=== PATIENT | male | born 1960 | race African-American/Black ===

== ENCOUNTER 2019-05-21 18:31 | Emergency (ER) | payer OTHER ==
[2019-05-21] MEDS ORDERED: HYDRALAZINE HCL 20 MG/ML VIAL ONE (19:30)
[2019-05-21 19:45] LABS: Absolute Lymphocytes (CBC) 0.9 K/uL (0.7-4.9); Basophils % 0.6 % (0-1.3); Hematocrit 40.2 % (39.6-49.0); Lymphocytes % 8.3 % (15.3-44.8); MPV 9.3 fL (7.6-11.3); RBC Red Blood Cell Count 5.32 M/uL (4.33-5.43)
[2019-05-21 20:20] LABS: Albumin 2.8 g/dL (3.4-5.0); Bilirubin Direct 0.1 mg/dL (0-0.2); Bilirubin Total 0.3 mg/dL (0.2-1.0); Potassium 3.6 mmol/L (3.5-5.1); Protein, Total 7.1 g/dL (6.4-8.2)
[2019-05-21 21:02] LABS: Anisocytosis SLIGHT; Blood Morphology Comment NOTED (NOT SEEN); Platelet Estimate ADEQ; Poikilocytosis SLIGHT
[2019-05-21] MEDS ORDERED: cloNIDine HCl 0.1 MG TAB ONE (21:05)
--- NOTE | 2019-05-21 21:54 | ER ---
Nurse's Notes [facility] Name: Earl Garcia Age: 59 yrs Sex: Male : 1960 Arrival Date: 05/21/2019 Time: 18:43 Bed 7 Private MD: Diagnosis: Hypoglycemia, unspecified Presentation: 05/21 18:43 Presenting complaint: EMS states: pt bgl was 26 at home. pt found on floor by family ch near couch. denies any pain. pt given 150mL of D10 W in route. pt is now aaox4. Transition of care: patient was not received from another setting of care. Onset of symptoms was May 21, 2019. Risk Assessment: Do you want to hurt yourself or someone else? Patient reports no desire to harm self or others. Initial Sepsis Screen: Does the patient meet any 2 criteria? No. Patient's initial sepsis screen is negative. Does the patient have a suspected source of infection? No. Patient's initial sepsis screen is negative. Care prior to arrival: Medication(s) given: D10 W IV initiated. 20 GA, in the left antecubital area, Glucose check: 26. 18:43 Method Of Arrival: EMS: [facility] 18:43 Acuity: LEN 3 ch Triage Assessment: 18:47 General: Appears in no apparent distress. comfortable, Behavior is calm, cooperative, ch appropriate for age. Pain: Denies pain. Neuro: Level of Consciousness is awake, alert, obeys commands, Oriented to person, place, time, situation, Tractor Operator Helper are weak on right pt has contractures on R side of body. Cardiovascular: Heart tones S1 S2 present Capillary refill < 3 seconds in bilateral fingers toes. Respiratory: No deficits noted. Derm: Skin is pink, warm \T\ dry. Historical: - Allergies: 18:47 No Known Allergies; ch - Home Meds: 18:47 lisinopril 20 mg Oral tab 2 tabs once daily [Active]; atorvastatin 40 mg oral tab 1 tab ch once daily [Active]; carvedilol 12.5 mg oral tab 1 tab 2 times per day [Active]; Lantus 100 unit/mL Sub-Q soln pt take 30 units in the morning and 20 at night. [Active]; - PMHx: 18:47 CVA; Hypertension; Diabetes - IDDM; Glaucoma; Hyperlipidemia; ch - PSHx: 18:47 eye-glaucoma; ch - Immunization history:: Adult Immunizations up to date. - Social history:: Smoking status: Patient/guardian denies using tobacco. - Ebola Screening: : Patient negative for fever greater than or equal to 101.5 degrees Fahrenheit, and additional compatible Ebola Virus Disease symptoms Patient denies exposure to infectious person Patient denies travel to an Ebola-affected area in the 21 days before illness onset No symptoms or risks identified at this time. Screenin:49 Abuse screen: Denies threats or abuse. Denies injuries from another. Nutritional ch screening: No deficits noted. Tuberculosis screening: No symptoms or risk factors identified. Fall Risk Fall in past 12 months (25 points). Secondary diagnosis (15 points) IV access (20 points). Mental Status- Oriented to own ability (0 pts). Total Suero Fall Scale indicates High Risk Score (45 or more points). Fall prevention measures have been instituted. Side Rails Up X 2 Frequent Obs/Assessments Occuring Family Present and informed to notify staff if the need to leave the bedside As available patient and family educated on Fall Prevention Program and Strategies. Assessment: 18:49 Reassessment: Patient appears in no apparent distress at this time. Patient and/or ch family updated on plan of care and expected duration. Pain level reassessed. Patient is alert, oriented x 3, equal unlabored respirations, skin warm/dry/pink. 19:10 General: Appears in no apparent distress. comfortable, Behavior is calm, cooperative, rr5 appropriate for age. Pain: Denies pain. Neuro: Level of Consciousness is awake, alert, obeys commands, Oriented to person, place, time, situation, Appropriate for age Speech is normal, Facial symmetry appears normal. Cardiovascular: Capillary refill < 3 seconds Patient's skin is warm and dry. Respiratory: Airway is patent Respiratory effort is even, unlabored, Respiratory pattern is regular, symmetrical. GI: No signs and/or symptoms were reported involving the gastrointestinal system. : No signs and/or symptoms were reported regarding the genitourinary system. EENT: No signs and/or symptoms were reported regarding the EENT system. Derm: Skin is intact, is healthy with good turgor, Skin is pink, warm \T\ dry. Skin temperature is warm. Musculoskeletal: Circulation, motion, and sensation intact. Capillary refill < 3 seconds. 19:19 Reassessment: Dr. Carver notifed. pt given sandwich, diet soda. pt A\T\OX4, resp even and ak1 unlabored. family at bedside. 20:25 Reassessment: Patient appears in no apparent distress at this time. Patient and/or rr5 family updated on plan of care and expected duration. Pain level reassessed. Patient is alert, oriented x 3, equal unlabored respirations, skin warm/dry/pink. CBG rechecked 128mg/dl and BP rechecked . ED provider aware. 21:00 Reassessment: Patient appears in no apparent distress at this time. No changes from rr5 previously documented assessment. awaiting for results. 21:40 Reassessment: CBG 157 mg/dl result. ED provider informed. rr5 22:00 Reassessment: Patient appears in no apparent distress at this time. Patient is alert, rr5 oriented x 3, equal unlabored respirations, skin warm/dry/pink. reassess by the ED provider.discharge instruction given and explained without complaints made, verbalized understanding. Patient denies pain at this time. Patient states feeling better. Patient states symptoms have improved. Vital Signs: 18:47 BP 212 / 100; Pulse 74; Resp 18; Temp 98.8; Pulse Ox 100% on R/A; Weight 81.65 kg; Height 6 ft. (182.88 cm); Pain 0/10; 19:00 BP 206 / 105; Pulse 75; Resp 17; Temp 98.1; Pulse Ox 99% ; rr5 20:00 BP 164 / 78; Pulse 99; Resp 17; Pulse Ox 99% ; rr5 21:30 BP 158 / 87; Pulse 98; Resp 19; Pulse Ox 100% on R/A; rr5 22:00 BP 158 / 87; Pulse 95; Resp 17; Temp 98.7; Pulse Ox 100% on R/A; Pain 0/10; rr5 18:47 Body Mass Index 24.41 (81.65 kg, 182.88 cm) ED Course: 18:43 Patient arrived in ED. 18:45 Triage completed. 18:47 Arm band placed on left wrist. Patient placed in an exam room, on a stretcher, on hall monitor, on pulse oximetry. 18:49 No apparent distress. Resting quietly. 18:49 Patient has correct armband on for positive identification. Bed in low position. Call light in reach. Side rails up X2. Adult w/ patient. hall monitor on. Pulse ox on. NIBP on. Warm blanket given. Pillow given. 18:49 No provider procedures requiring assistance completed. Maintain EMS IV. Dressing ch intact. Good blood return noted. Site clean \T\ dry. Gauge \T\ site: 20 L AC. 18:59 Aurelio Diaz, RN is Primary Nurse. rr5 19:11 Nicola Shah MD is Attending Physician. rn 19:12 Attending Physician role handed off by Nicola Shah MD tw4 19:12 Kam Carver MD is Attending Physician. tw4 19:15 Diet: Patient given snack. Patient given juice. Tolerated well. rr5 19:28 Initial lab(s) drawn, by nh, sent to lab. rr5 21:29 Head of bed lowered. Patient given more warm blankets and a pillow. . jb5 22:02 IV discontinued, intact, bleeding controlled, No redness/swelling at site. Pressure rr5 dressing applied. Administered Medications: 19:32 Drug: hydrALAZINE 20 mg {Note: BP 210/99 mmHg.} Route: IV; Rate: bolus; Site: left rr5 antecubital; 20:30 Follow up: Response: No adverse reaction; IV Status: Completed infusion; IV Intake: rr5 1000ml 21:06 Drug: cloNIDine 0.2 mg Route: PO; rr5 22:00 Follow up: Response: Blood pressure is lowered rr5 Point of Care Testing: Blood Glucose: 18:44 Blood Glucose: 161 mg/dL; iw Ranges: Intake: 20:30 IV: 1000ml; Total: 1000ml. rr5 Outcome: 21:53 Discharge ordered by . tw4 22:02 Discharged to home via wheelchair, with family. rr5 22:02 Condition: stable 22:02 Discharge instructions given to patient, family, Instructed on discharge instructions, follow up and referral plans. Demonstrated understanding of instructions, follow-up care. 22:09 Patient left the ED. rr5 Signatures: Treva Miller RN RN Patito Bishop RN RN Nicola Shah MD MD rn Krenek, Amber, RN RN ak1 Petra De Los Santos jb5 Kam Carver MD MD tw4 Aurelio Diaz RN RN rr5
--- NOTE | 2019-05-21 21:54 | EDPHYS ---
Physician Documentation [facility] Name: Earl Garcia Age: 59 yrs Sex: Male : 1960 Arrival Date: 05/21/2019 Time: 18:43 Bed 7 Private MD: ED Physician Kam Carver HPI: 05/21 20:26 This 59 yrs old Black Male presents to ER via EMS with complaints of Low Blood Sugar. tw4 20:26 The patient or guardian reports hypoglycemia, that was potentially precipitated by tw4 eating. Onset: The symptoms/episode began/occurred today. Associated signs and symptoms: Pertinent positives: None. Pertinent negatives: None. Current symptoms: In the emergency department the patient's symptoms are unchanged from the initial presentation. The patient has not experienced similar symptoms in the past. Historical: - Allergies: 18:47 No Known Allergies; ch - Home Meds: 18:47 lisinopril 20 mg Oral tab 2 tabs once daily [Active]; atorvastatin 40 mg oral tab 1 tab ch once daily [Active]; carvedilol 12.5 mg oral tab 1 tab 2 times per day [Active]; Lantus 100 unit/mL Sub-Q soln pt take 30 units in the morning and 20 at night. [Active]; - PMHx: 18:47 CVA; Hypertension; Diabetes - IDDM; Glaucoma; Hyperlipidemia; ch - PSHx: 18:47 eye-glaucoma; ch - Immunization history:: Adult Immunizations up to date. - Social history:: Smoking status: Patient/guardian denies using tobacco. - Ebola Screening: : Patient negative for fever greater than or equal to 101.5 degrees Fahrenheit, and additional compatible Ebola Virus Disease symptoms Patient denies exposure to infectious person Patient denies travel to an Ebola-affected area in the 21 days before illness onset No symptoms or risks identified at this time. ROS: 20:26 Constitutional: Negative for fever, chills, and weight loss, Eyes: Negative for injury, tw4 pain, redness, and discharge, Cardiovascular: Negative for chest pain, palpitations, and edema, Respiratory: Negative for shortness of breath, cough, wheezing, and pleuritic chest pain, Abdomen/GI: Negative for abdominal pain, nausea, vomiting, diarrhea, and constipation, MS/Extremity: Negative for injury and deformity, Skin: Negative for injury, rash, and discoloration, Neuro: Negative for headache, weakness, numbness, tingling, and seizure. 20:26 Endocrine: Negative for goiter, cold intolerance, heat intolerance, polydipsia, polyphagia, polyuria, weight gain, weight loss. 20:26 All other systems are negative. Exam: 20:26 Constitutional: This is a well developed, well nourished patient who is awake, alert, tw4 and in no acute distress. Head/Face: Normocephalic, atraumatic. Chest/axilla: Normal chest wall appearance and motion. Nontender with no deformity. No lesions are appreciated. Cardiovascular: Regular rate and rhythm with a normal S1 and S2. No gallops, murmurs, or rubs. Normal PMI, no JVD. No pulse deficits. Respiratory: Lungs have equal breath sounds bilaterally, clear to auscultation and percussion. No rales, rhonchi or wheezes noted. No increased work of breathing, no retractions or nasal flaring. Abdomen/GI: Soft, non-tender, with normal bowel sounds. No distension or tympany. No guarding or rebound. No evidence of tenderness throughout. Skin: Warm, dry with normal turgor. Normal color with no rashes, no lesions, and no evidence of cellulitis. MS/ Extremity: Pulses equal, no cyanosis. Neurovascular intact. Full, normal range of motion. Neuro: Awake and alert, GCS 15, oriented to person, place, time, and situation. Cranial nerves II-XII grossly intact. Motor strength 5/5 in all extremities. Sensory grossly intact. Cerebellar exam normal. Normal gait. Vital Signs: 18:47 BP 212 / 100; Pulse 74; Resp 18; Temp 98.8; Pulse Ox 100% on R/A; Weight 81.65 kg; ch Height 6 ft. (182.88 cm); Pain 0/10; 19:00 BP 206 / 105; Pulse 75; Resp 17; Temp 98.1; Pulse Ox 99% ; rr5 20:00 BP 164 / 78; Pulse 99; Resp 17; Pulse Ox 99% ; rr5 21:30 BP 158 / 87; Pulse 98; Resp 19; Pulse Ox 100% on R/A; rr5 22:00 BP 158 / 87; Pulse 95; Resp 17; Temp 98.7; Pulse Ox 100% on R/A; Pain 0/10; rr5 18:47 Body Mass Index 24.41 (81.65 kg, 182.88 cm) ch MDM: 19:12 Patient medically screened. tw4 05/22 05:40 Differential diagnosis: [place]'s syndrome, diabetes insipidus, hyperglycemia, tw4 hyperthyroidism. Data reviewed: vital signs, nurses notes. Data reviewed: lab test result(s), CBC, white blood cell count, hemoglobin, hematocrit, platelets, electrolytes, sodium, potassium, chloride, serum bicarbonate, BUN, creatinine, serum glucose. Data interpreted: Pulse oximetry: Interpretation: normal. Counseling: I had a detailed discussion with the patient and/or guardian regarding: the historical points, exam findings, and any diagnostic results supporting the discharge/admit diagnosis, lab results. 05/21 18:53 Order name: Glucose, Ancillary Testing; Complete Time: 20:14 EDWA 05/21 21:47 Interpretation: Normal except: GLUC,ANCIL 161. [facility] 05/21 19:19 Order name: Basic Metabolic Panel; Complete Time: 20:24 tw 05/21 21:47 Interpretation: Normal except: CL 110; GFR 83. tw4 05/21 19:19 Order name: CBC with Diff; Complete Time: 21:46 [facility] 05/21 21:46 Interpretation: Normal except: WBC 11.1; HGB 12.6; MCV 75.5; MCH 23.8; MCHC 31.5; RDW tw4 16.0; NEUT A 9.5; LYM% 8.3; DWAYNE% 86.2. 05/21 19:19 Order name: Creatinine for Radiology; Complete Time: 20:14 tw4 05/21 19:19 Order name: Hepatic Function; Complete Time: 20:24 [facility] 05/21 21:47 Interpretation: Normal except: ALB 2.8; GLOB 4.3; A/G 0.7. tw 05/21 19:19 Order name: Lipase; Complete Time: 20:24 [facility] 05/21 19:19 Order name: IV Saline Lock; Complete Time: 19:28 tw4 05/21 19:19 Order name: Labs collected and sent; Complete Time: 19:28 [facility] 05/21 20:41 Order name: Glucose, Ancillary Testing; Complete Time: 21:46 EDWA 05/21 21:46 Interpretation: Within normal limits: GLUC,ANCIL 128. tw4 05/21 21:03 Order name: Manual Differential; Complete Time: 21:46 EDMS 05/21 21:47 Interpretation: Normal except: SEGS 85; LYM 11. tw4 05/21 21:43 Order name: Glucose, Ancillary Testing; Complete Time: 21:46 EDMS 05/21 21:47 Interpretation: Normal except: GLUC,ANCIL 157. tw4 Administered Medications: 05/21 19:32 Drug: hydrALAZINE 20 mg {Note: BP 210/99 mmHg.} Route: IV; Rate: bolus; Site: left rr5 antecubital; 20:30 Follow up: Response: No adverse reaction; IV Status: Completed infusion; IV Intake: rr5 1000ml 21:06 Drug: cloNIDine 0.2 mg Route: PO; rr5 22:00 Follow up: Response: Blood pressure is lowered rr5 Point of Care Testing: Blood Glucose: 18:44 Blood Glucose: 161 mg/dL; iw Ranges: Critical Glucose Levels:Adult <50 mg/dl or >400 mg/dl <40 mg/dl or >180 mg/dl Disposition: 05/21/19 21:53 Discharged to Home. Impression: Hypoglycemia, unspecified. - Condition is Stable. - Discharge Instructions: Hypoglycemia, Hypertension, [id number], Hypoglycemia, [id number]. - Medication Reconciliation Form, Thank You Letter, Antibiotic Education, Prescription Opioid Use form. - Follow up: Private Physician; When: Upon discharge from the Emergency Department; Reason: Recheck today's complaints, Continuance of care. - Problem is new. - Symptoms have improved. Signatures: Dispatcher [employer] Treva Diaz, RN RN Kam Erwin MD MD tw4 Aurelio Diaz RN RN rr5 Corrections: (The following items were deleted from the chart) 22:09 21:53 05/21/2019 21:53 Discharged to Home. Impression: Hypoglycemia, unspecified. rr5 Condition is Stable. Forms are Medication Reconciliation Form, Thank You Letter, Antibiotic Education, Prescription Opioid Use. Follow up: Private Physician; When: Upon discharge from the Emergency Department; Reason: Recheck today's complaints, Continuance of care. Problem is new. Symptoms have improved. tw4
[2019-05-21 23:21] VITALS: BP 158/87; O2SAT 100
[2019-05-21 23:22] VITALS: TEMP 98.7
== END 2019-05-21 22:09 | disposition home or self-care (01) ==
LOC: ER 18:31
DX: E16.2 Hypoglycemia, unspecified (principal); I10 Essential (primary) hypertension; E11.9 Type 2 diabetes mellitus without complications; E78.5 Hyperlipidemia, unspecified
CPT/HCPCS: 96365; 85025; 80048; 36415; 82947 ×3; 80076; 83690; 99284; J0360

== ENCOUNTER 2021-08-12 16:02 | Inpatient (IN) | payer OTHER ==
--- OUTSIDE RECORDS SUMMARY | 2021-08-12 16:06 | XMS REPORT | Continuity of Care Document ---
:1960 Author Organization [facility] t Address [address] [place] [address] Care Team Providers Name Role Phone Ronny Hamilton Primary Care Physician Sher MORALES Attending Clinician Unavailable OLU Attending Clinician Unavailable CHINTAN Attending Clinician Unavailable Chintan Attending Clinician LENA VILLAREAL Attending Clinician Unavailable ISAMAR Attending Clinician Unavailable STONEY PITTMAN Attending Clinician Unavailable VICENTE SUTTON Attending Clinician Unavailable KIP Admitting Clinician Unavailable OLU Admitting Clinician Unavailable CHINTAN Admitting Clinician Unavailable Chintan Admitting Clinician LENA VILLAREAL Admitting Clinician Unavailable CRISTIAN Admitting Clinician Unavailable Payers Payer Name Policy Type Policy Number Effective Date Expiration Date Peter doan [facility] [id number] 2020 2024 PLAN [employer]US 00:00:00 00:00:00 OON Problems This patient has no known problems. Allergies, Adverse Reactions, Alerts Allergy Allergy Status Severity Reaction(s) Onset Inactive Treating Comm ents Source Name Type Date Date Clinician No Known DA Active [facility]03 [facility] No Known DA Active [facility] 1-03 [place] s 00:[facility]: [facility] Social History Social Habit Start Date Stop Date Quantity Comments Source Sex Assigned At [birth year] [facility] 00:00:00 00:00:00 Smoking Status Start Date Stop Date Source Tobacco smoking consumption unknown [facility] Medications This patient has no known medications. Vital Signs Vital Name Observation Time Observation Value Comments Source Body height 2021-05-22 03:58:58 170.2 cm [facility] Body weight 2021-05-22 03:58:58 70.6 kg [facility] BMI 2021-05-22 03:58:58 24.38 kg/m2 [facility] Procedures Procedure Date / Time Performed Performing Clinician [facility] e NM LUNG PERFUSION SCAN ONLY 2021-05-22 15:24:33 [facility] ECHOCARDIOGRAM 2D COMPLETE 2021-05-22 01:39:08 System, Provider Not In [facility] DOPPLER VENOUS ARM 2021-05-22 01:07:50 System, Provider Not I n [facility] UNILATERAL ECG 12-LEAD 2021-05-21 20:01:28 Viky Jimenez [facility] alth Shireen Encounters Start End Encounter Admission Attending Care Care Encounter Source Date/Time Date/Time Type Type Clinicians Facility Department ID 2021-08-12 Outpatient TISSUE, [facility] [id number] [place] 01:05:41 [facility] 2019-08-03 Inpatient HCANW VIANNEY [id number] [facility] 10:44:00 [id number] [facility] 2019-07-21 Inpatient HCANW VIANNEY [id number] [facility] 03:44:00 [facility] 2021-05-29 2021-05-29 Outpatient E VEENA RAIENS MED [id number] MHTW 08:38:00 08:38:00 CARIDAD 2021-05-24 2021-05-24 Inpatient E BOOGIE GUZMAN MED [id number] MHNW 15:36:00 20:17:00 LAYLA 2021-05-21 2021-05-21 EXT [facility] Chintan EXT MSRDP [id number] [place] 00:00:00 00:00:00 Layla LOCATION [id number] H [facility] [id number] 2021-05-12 2021-05-19 Inpatient E DIONNA, MHNW MHNW [id number] MHNW 20:52:00 17:06:00 DARRION 2021-04-23 2021-04-23 Emergency E ISAMAR, MHNW MHNW [id number] MHNW 10:09:00 18:15:00 TATSUO 2021-02-10 2021-02-10 Emergency E DESIREE PITTMAN MHNW MHNW [id number] MHNW 12:51:00 16:34:00 2020-12-24 2020-12-27 Inpatient E LESLEY, [facility] MED [id number] MHNW 18:23:00 16:58:00 NENA Results Test Description Test Time Test Comments Results Result Comments Source GLUBED 2019-08-06 11:28:00 Test Item Value Reference Range Interpretation Comme nts GLUBED (test code = GLUBED) 264 MG/DL 70-105 H CBC W/AUTO [id number] 06:04:00 Test Item Value Reference Range Interpretation Comments WHITE BLOOD CELL (test code = 9.4 x10 3/uL 3.2-11.5 N WBC) RED BLOOD CELL (test code = 3.67 x10(6)/m 4.20-5.70 L RBC) HEMOGLOBIN (test code = HGB) 8.4 g/dL 12.9-17.3 L HEMATOCRIT (test code = HCT) 26.6 % 38.7-51.0 L MEAN CELL VOLUME (test code = 73 fL 80-100 L MCV) MEAN CELL HGB (test code = MCH) 22.9 pg 26.7-33.3 L MEAN CELL HGB CONCENTRATION 31.6 g/dL 30.0-34.0 N (test code = MCHC) RED CELL DISTRIBUTION WIDTH 14.7 % 11.3-14.5 H (test code = RDW) PLATELET COUNT (test code = 330 x10 3/uL 130-408 N PLT) MEAN PLATELET VOLUME (test code 11.6 fL 8.6-12.6 N = MPV) NEUTROPHIL % (test code = NT%) 70.7 % 40.0-70.0 H IMMATURE GRANULOCYTE % (test 0.2 % 0.0-2.0 N code = IG%) LYMPHOCYTE % (test code = LY%) 17.1 % 20-40 L MONOCYTE % (test code = MO%) 10.4 % 1-10 H EOSINOPHIL % (test code = EO%) 1.4 % 0.0-5.0 N BASOPHIL % (test code = BA%) 0.2 % 0.0-1.0 N NUCLEATED RBC % (test code = 0.0 % 0.0-0.9 N NRBC%) NEUTROPHIL # (test code = NT#) 6.6 x10 3/uL 1.6-7.2 N LYMPHOCYTE # (test code = LY#) 1.61 x10 3/uL 1.1-2.7 N MONOCYTE # (test code = MO#) 1.0 x10 3/uL 0.3-0.8 H EOSINOPHIL # (test code = EO#) 0.1 x10 3/uL 0.0-0.5 N BASOPHIL # (test code = BA#) 0.0 x10 3/uL 0.0-0.1 N [id number] 05:57:00 Test Item Value Reference Range Interpretation Comments GLUBED (test code = GLUBED) 189 MG/DL 70-105 H BASIC METABOLIC [id number] 05:51:00 Test Item Value Reference Range Interpretation Comments SODIUM (test code 142 mmol/L 135-145 N = NA) POTASSIUM (test 3.5 mmol/L 3.6-5.0 L code = K) CHLORIDE (test 106 mmol/L 101-111 N code = CL) CARBON DIOXIDE 27 mmol/L 21-31 N (test code = CO2) GLUCOSE (test code 158 mg/dl 70-100 H = GLU) BLOOD UREA 24 mg/dl 6-20 H NITROGEN (test code = BUN) GLOMERULAR >=60 max >60 The estimated FILTRATION RATE estimate glomerular (test code = GFR) filtration rate is computed usingpatient ra ce, age (>18), sex, and serum creatinin e. If anyof the neede d data elements a re missing the Laboratory mary ot compute an estimation of t he glomerular filtration rate . CREATININE (test 1.17 mg/dL 0.64-1.27 N code = CREAT) CALCIUM (test code 7.8 mg/dL 8.5-10.5 L = CA) [id number] 03:57:00 Test Item Value Reference Range Interpretation Comments GLUBED (test code = GLUBED) 129 MG/DL 70-105 H [id number] 21:14:00 Test Item Value Reference Range Interpretation Comments GLUBED (test code = GLUBED) 271 MG/DL 70-105 H [id number] 17:22:00 Test Item Value Reference Range Interpretation Comments GLUBED (test code = GLUBED) 270 MG/DL 70-105 H [id number] 12:34:00 Test Item Value Reference Range Interpretation Comments GLUBED (test code = GLUBED) 173 MG/DL 70-105 H [id number] 06:16:00 Test Item Value Reference Range Interpretation Comments GLUBED (test code = GLUBED) 207 MG/DL 70-105 H BASIC METABOLIC [id number] 05:14:00 Test Item Value Reference Range Interpretation Comments SODIUM (test code 140 mmol/L 135-145 N = NA) POTASSIUM (test 3.4 mmol/L 3.6-5.0 L code = K) CHLORIDE (test 107 mmol/L 101-111 N code = CL) CARBON DIOXIDE 26 mmol/L 21-31 N (test code = CO2) GLUCOSE (test code 109 mg/dl 70-100 H = GLU) BLOOD UREA 19 mg/dl 6-20 N NITROGEN (test code = BUN) GLOMERULAR >=60 max >60 The estimated FILTRATION RATE estimate glomerular (test code = GFR) filtration rate is computed usingpatient ra ce, age (>18), sex, and serum creatinin e. If anyof the neede d data elements a re missing the Laboratory mary ot compute an estimation of t he glomerular filtration rate . CREATININE (test 1.33 mg/dL 0.64-1.27 H code = CREAT) CALCIUM (test code 8.3 mg/dL 8.5-10.5 L = CA) CBC W/AUTO [id number] 05:01:00 Test Item Value Reference Range Interpretation Comments WHITE BLOOD CELL (test code = 8.0 x10 3/uL 3.2-11.5 N WBC) RED BLOOD CELL (test code = 3.77 x10(6)/m 4.20-5.70 L RBC) HEMOGLOBIN (test code = HGB) 8.6 g/dL 12.9-17.3 L HEMATOCRIT (test code = HCT) 27.3 % 38.7-51.0 L MEAN CELL VOLUME (test code = 72 fL 80-100 L MCV) MEAN CELL HGB (test code = MCH) 22.8 pg 26.7-33.3 L MEAN CELL HGB CONCENTRATION 31.5 g/dL 30.0-34.0 N (test code = MCHC) RED CELL DISTRIBUTION WIDTH 15.3 % 11.3-14.5 H (test code = RDW) PLATELET COUNT (test code = 308 x10 3/uL 130-408 N PLT) MEAN PLATELET VOLUME (test code 10.5 fL 8.6-12.6 N = MPV) NEUTROPHIL % (test code = NT%) 67.6 % 40.0-70.0 N IMMATURE GRANULOCYTE % (test 0.3 % 0.0-2.0 N code = IG%) LYMPHOCYTE % (test code = LY%) 20.1 % 20-40 MONOCYTE % (test code = MO%) 10.2 % 1-10 H EOSINOPHIL % (test code = EO%) 1.5 % 0.0-5.0 N BASOPHIL % (test code = BA%) 0.3 % 0.0-1.0 N NUCLEATED RBC % (test code = 0.0 % 0.0-0.9 N NRBC%) NEUTROPHIL # (test code = NT#) 5.4 x10 3/uL 1.6-7.2 N LYMPHOCYTE # (test code = LY#) 1.60 x10 3/uL 1.1-2.7 N MONOCYTE # (test code = MO#) 0.8 x10 3/uL 0.3-0.8 N EOSINOPHIL # (test code = EO#) 0.1 x10 3/uL 0.0-0.5 N BASOPHIL # (test code = BA#) 0.0 x10 3/uL 0.0-0.1 N [id number] 21:50:00 Test Item Value Reference Range Interpretation Comments GLUBED (test code = GLUBED) 232 MG/DL 70-105 H [id number] 17:35:00 Test Item Value Reference Range Interpretation Comments GLUBED (test code = GLUBED) 102 MG/DL 70-105 N [id number] 12:12:00 Test Item Value Reference Range Interpretation Comments GLUBED (test code = GLUBED) 227 MG/DL 70-105 H HGBA1C - GLYCOSYLATED [id number] 09:04:00 Test Item Value Reference Range Interpretation Comments GLYCOSYLATED HEMOGLOBIN 10.9 % 4.0-6.0 H Inte rpretive Data: (HA1C) (test code = Caution should be GLYHGB) exercised when interpreting th e HgbA1c in patients wit h hemolytic anemi a, iron deficiency and when the total hemoglobi n is < 9g/dL, due to a decrease in ave rage age of red blood ce lls CBC W/AUTO [id number] 06:14:00 Test Item Value Reference Range Interpretation Comments WHITE BLOOD CELL (test code = 9.7 x10 3/uL 3.2-11.5 N WBC) RED BLOOD CELL (test code = 3.77 x10(6)/m 4.20-5.70 L RBC) HEMOGLOBIN (test code = HGB) 8.5 g/dL 12.9-17.3 L HEMATOCRIT (test code = HCT) 27.8 % 38.7-51.0 L MEAN CELL VOLUME (test code = 74 fL 80-100 L MCV) MEAN CELL HGB (test code = MCH) 22.5 pg 26.7-33.3 L MEAN CELL HGB CONCENTRATION 30.6 g/dL 30.0-34.0 N (test code = MCHC) RED CELL DISTRIBUTION WIDTH 15.4 % 11.3-14.5 H (test code = RDW) PLATELET COUNT (test code = 303 x10 3/uL 130-408 N PLT) MEAN PLATELET VOLUME (test code 11.0 fL 8.6-12.6 N = MPV) NEUTROPHIL % (test code = NT%) 77.1 % 40.0-70.0 H IMMATURE GRANULOCYTE % (test 0.2 % 0.0-2.0 N code = IG%) LYMPHOCYTE % (test code = LY%) 12.9 % 20-40 L MONOCYTE % (test code = MO%) 8.4 % 1-10 N EOSINOPHIL % (test code = EO%) 1.1 % 0.0-5.0 N BASOPHIL % (test code = BA%) 0.3 % 0.0-1.0 N NUCLEATED RBC % (test code = 0.0 % 0.0-0.9 N NRBC%) NEUTROPHIL # (test code = NT#) 7.5 x10 3/uL 1.6-7.2 H LYMPHOCYTE # (test code = LY#) 1.25 x10 3/uL 1.1-2.7 N MONOCYTE # (test code = MO#) 0.8 x10 3/uL 0.3-0.8 N EOSINOPHIL # (test code = EO#) 0.1 x10 3/uL 0.0-0.5 N BASOPHIL # (test code = BA#) 0.0 x10 3/uL 0.0-0.1 N BASIC METABOLIC [id number] 06:14:00 Test Item Value Reference Range Interpretation Comments SODIUM (test code 140 mmol/L 135-145 N = NA) POTASSIUM (test 3.9 mmol/L 3.6-5.0 N code = K) CHLORIDE (test 110 mmol/L 101-111 N code = CL) CARBON DIOXIDE 23 mmol/L 21-31 N (test code = CO2) GLUCOSE (test code 93 mg/dl 70-100 N = GLU) BLOOD UREA 21 mg/dl 6-20 H NITROGEN (test code = BUN) GLOMERULAR >=60 max >60 The estimated FILTRATION RATE estimate glomerular (test code = GFR) filtration rate is computed usingpatient ra ce, age (>18), sex, and serum creatinin e. If anyof the neede d data elements a re missing the Laboratory mary ot compute an estimation of t he glomerular filtration rate . CREATININE (test 1.19 mg/dL 0.64-1.27 N code = CREAT) CALCIUM (test code 8.4 mg/dL 8.5-10.5 L = CA) [id number] 06:08:00 Test Item Value Reference Range Interpretation Comments GLUBED (test code = GLUBED) 101 MG/DL 70-105 N [id number] 20:40:00 Test Item Value Reference Range Interpretation Comments GLUBED (test code = GLUBED) 253 MG/DL 70-105 H [id number] 17:35:00 Test Item Value Reference Range Interpretation Comments GLUBED (test code = GLUBED) 108 MG/DL 70-105 H ARTERIAL BLOOD [id number] 14:47:00 Test Item Value Reference Range Interpretation Comments ARTERIAL BLOOD GAS PH (test code 7.342 7.35-7.45 L = PHA) ARTERIAL BLOOD GAS PCO2 (test 41.7 mmHg 45-55 L code = PCO2A) ARTERIAL BLOOD GAS PO2 (test code 312.7 mmHg 80-100 H = PO2A) BICARBONATE TOTAL HCO3 (test code 22.1 mmol/L 22-26 N = HCO3) BASE EXCESS (test code = JAKE) -3.4 mmol/L (+/-)2.0 L ABG O2 SATURATION (test code = 99.2 % 95.0-100.0 N SATA) ABG TYPE (test code = TYPEA) Arterial ARTERIAL FIO2 (test code = FIO2A) 80.0 % ABG VENT MODE (test code = MODEA) BIPAP ALLENS TEST (test code = ALLENS) Yes TOTAL HGB (test code = THB) 10.1 g/dL 13.0-17.0 L [id number] 13:27:00 Test Item Value Reference Range Interpretation Comments GLUBED (test code = GLUBED) 423 MG/DL 70-105 HH - XR CHEST 1 [id number] 12:00:00Patient Name: MIKA HERRERA Unit No: [id number] EXAMS: CPT: [id number] XR CHEST 1 V [id number] AP CHEST 1 VIEW COMPARISON: July 21, 2019 FINDINGS: Pulmonary vascular congestion with interstitial opacity in both lungs. Heart and mediastinal contours unremarkable. No pleural effusion or pneumothorax.No gross osseous pathology. IMPRESSION: Pulmonary edema. at 1200 Reported and signed by: Paulino South MD CC: Technologist: Masoud Morrow Time: DAP (Gy m2): Air Kerma (mGy): Trscr Dt/Tm: 08/03/2019 (1200) by:[email or web address] Orig Print D/T: S: 08/03/2019 (6695) BATCH NO: N/A Name: MIKA HERRERA [facility] Phys: Anna Hodgson DO [address] : 1960 Age: 59 Sex: [place] [address] [id number] Loc: NVICKI Exam Date: 08/03/2019 Status: REG ER PH: FAX: PAGE 1 Signed ReportB-TYPE NATRIURETIC [id number] 11:38:00 Test Item Value Reference Range Interpretation Comments B-TYPE NATRIURETIC PEPTIDE (test 230 pg/ml 0-100 H code = BNP) BASIC METABOLIC [id number] 11:34:00 Test Item Value Reference Range Interpretation Comments SODIUM (test code 136 mmol/L 135-145 N = NA) POTASSIUM (test 4.7 mmol/L 3.6-5.0 N code = K) CHLORIDE (test 107 mmol/L 101-111 N code = CL) CARBON DIOXIDE 22 mmol/L 21-31 N (test code = CO2) GLUCOSE (test code 400 mg/dl 70-100 H = GLU) BLOOD UREA 19 mg/dl 6-20 N NITROGEN (test code = BUN) GLOMERULAR >=60 max >60 The estimated FILTRATION RATE estimate glomerular (test code = GFR) filtration rate is computed usingpatient ra ce, age (>18), sex, and serum creatinin e. If anyof the neede d data elements a re missing the Laboratory mary ot compute an estimation of t he glomerular filtration rate . CREATININE (test 1.38 mg/dL 0.64-1.27 H code = CREAT) CALCIUM (test code 8.4 mg/dL 8.5-10.5 L = CA) LIVER FUNCTION [id number] 11:34:00 Test Item Value Reference Range Interpretation Comments TOTAL PROTEIN (test code = PROT) 6.8 g/dL 6.7-8.2 N ALBUMIN (test code = ALB) 2.7 g/dL 3.2-5.5 L BILIRUBIN TOTAL (test code = BILT) 0.60 mg/dL 0.2-1.3 N BILIRUBIN DIRECT (test code = 0.1 mg/dL 0.00-0.20 N BILD) SGOT/AST (test code = AST) 66 U/L 10-42 H SGPT/ALT (test code = ALT) 60 U/L 10-60 N ALKALINE PHOSPHATASE (test code = 108 U/L 42-121 N ALKP) [id number] 11:34:00 Test Item Value Reference Range Interpretation Comments LIPASE (test code = LIP) 27 IU/L 22-51 N [id number] 11:33:00 Test Item Value Reference Range Interpretation Comments TROPONIN-I (test code = TROPI) 0.034 ng/mL 0.000-0.034 N BASIC METABOLIC [id number] 11:30:00 Test Item Value Reference Range Interpretation Comments SODIUM (test code 136 mmol/L 135-145 N = NA) POTASSIUM (test 4.7 mmol/L 3.6-5.0 N code = K) CHLORIDE (test 107 mmol/L 101-111 N code = CL) CARBON DIOXIDE 22 mmol/L 21-31 N (test code = CO2) GLUCOSE (test code 400 mg/dl 70-100 H = GLU) BLOOD UREA 19 mg/dl 6-20 N NITROGEN (test code = BUN) GLOMERULAR >=60 max >60 The estimated FILTRATION RATE estimate glomerular (test code = GFR) filtration rate is computed usingpatient ra ce, age (>18), sex, and serum creatinin e. If anyof the neede d data elements a re missing the Laboratory mary ot compute an estimation of t he glomerular filtration rate . CREATININE (test 1.38 mg/dL 0.64-1.27 H code = CREAT) CALCIUM (test code 8.4 mg/dL 8.5-10.5 L = CA) LIVER FUNCTION [id number] 11:30:00 Test Item Value Reference Range Interpretation Comments TOTAL PROTEIN (test code = PROT) 6.8 g/dL 6.7-8.2 N ALBUMIN (test code = ALB) 2.7 g/dL 3.2-5.5 L BILIRUBIN TOTAL (test code = BILT) mg/dL 0.2-1.3 BILIRUBIN DIRECT (test code = BILD) mg/dL 0.00-0.20 SGOT/AST (test code = AST) U/L 10-42 SGPT/ALT (test code = ALT) U/L 10-60 ALKALINE PHOSPHATASE (test code = U/L 42-121 ALKP) [id number] 11:30:00 Test Item Value Reference Range Interpretation Comments LIPASE (test code = LIP) 27 IU/L 22-51 N PROTHROMBIN [id number] 11:20:00 Test Item Value Reference Range Interpretation Comments PROTHROMBIN TIME 12.1 SECONDS 9.6-13.0 N PATIENT (test code = PTP) INTERNATIONAL NORMAL 1.1 The INR is to be RATIO (test code = used only for INR) monitoring oral anticoagulantth erap y. INDICATION IN R VALUE ---- ---- ---- --------1. Prophylaxis, de ep venous thrombos is, 2.0 - 2.5 including high-risk surgery.2. Prophylaxis, de ep venous thrombos is, 2.0 - 3.0 hip surgery, treatment for d eep venous thromb osis or pulmonary prevention of systemic emboli sm in patients wit h valvular heart disease, atrial fibrillation, tissue heart va lve, or acute myocar dial infarction.3. Mechanical prosthesis hear t valves, 3.0 - 4.5 recurrent syste consuelo embolism. CBC W/AUTO [id number] 11:14:00 Test Item Value Reference Range Interpretation Comments WHITE BLOOD CELL (test code = 6.9 x10 3/uL 3.2-11.5 N WBC) RED BLOOD CELL (test code = 4.31 x10(6)/m 4.20-5.70 N RBC) HEMOGLOBIN (test code = HGB) 9.6 g/dL 12.9-17.3 L HEMATOCRIT (test code = HCT) 32.2 % 38.7-51.0 L MEAN CELL VOLUME (test code = 75 fL 80-100 L MCV) MEAN CELL HGB (test code = MCH) 22.3 pg 26.7-33.3 L MEAN CELL HGB CONCENTRATION 29.8 g/dL 30.0-34.0 L (test code = MCHC) RED CELL DISTRIBUTION WIDTH 15.9 % 11.3-14.5 H (test code = RDW) PLATELET COUNT (test code = 374 x10 3/uL 130-408 N PLT) MEAN PLATELET VOLUME (test code 11.5 fL 8.6-12.6 N = MPV) NEUTROPHIL % (test code = NT%) 62.3 % 40.0-70.0 N IMMATURE GRANULOCYTE % (test 0.7 % 0.0-2.0 N code = IG%) LYMPHOCYTE % (test code = LY%) 24.1 % 20-40 N MONOCYTE % (test code = MO%) 10.5 % 1-10 H EOSINOPHIL % (test code = EO%) 2.3 % 0.0-5.0 N BASOPHIL % (test code = BA%) 0.1 % 0.0-1.0 N NUCLEATED RBC % (test code = 0.0 % 0.0-0.9 N NRBC%) NEUTROPHIL # (test code = NT#) 4.3 x10 3/uL 1.6-7.2 N LYMPHOCYTE # (test code = LY#) 1.66 x10 3/uL 1.1-2.7 N MONOCYTE # (test code = MO#) 0.7 x10 3/uL 0.3-0.8 N EOSINOPHIL # (test code = EO#) 0.2 x10 3/uL 0.0-0.5 N BASOPHIL # (test code = BA#) 0.0 x10 3/uL 0.0-0.1 N [id number] 16:45:00 Test Item Value Reference Range Interpretation Comments GLUBED (test code = GLUBED) 309 MG/DL 70-105 HH [id number] 11:38:00 Test Item Value Reference Range Interpretation Comments GLUBED (test code = GLUBED) 164 MG/DL 70-105 H [id number] 06:04:00 Test Item Value Reference Range Interpretation Comments GLUBED (test code = GLUBED) 103 MG/DL 70-105 N [id number] 21:54:00 Test Item Value Reference Range Interpretation Comments GLUBED (test code = GLUBED) 107 MG/DL 70-105 H [id number] 16:27:00 Test Item Value Reference Range Interpretation Comments GLUBED (test code = GLUBED) 160 MG/DL 70-105 H [id number] 11:37:00 Test Item Value Reference Range Interpretation Comments GLUBED (test code = GLUBED) 210 MG/DL 70-105 H BASIC METABOLIC [id number] 05:27:00 Test Item Value Reference Range Interpretation Comments SODIUM (test code 139 mmol/L 135-145 N = NA) POTASSIUM (test 3.1 mmol/L 3.6-5.0 L code = K) CHLORIDE (test 107 mmol/L 101-111 N code = CL) CARBON DIOXIDE 24 mmol/L 21-31 N (test code = CO2) GLUCOSE (test code 120 mg/dl 70-100 H = GLU) BLOOD UREA 9 mg/dl 6-20 N NITROGEN (test code = BUN) GLOMERULAR >=60 max >60 The estimated FILTRATION RATE estimate glomerular (test code = GFR) filtration rate is computed usingpatient ra ce, age (>18), sex, and serum creatinin e. If anyof the neede d data elements a re missing the Laboratory mary ot compute an estimation of t he glomerular filtration rate . CREATININE (test 1.01 mg/dL 0.64-1.27 N code = CREAT) CALCIUM (test code 8.0 mg/dL 8.5-10.5 L = CA) [id number] 05:27:00 Test Item Value Reference Range Interpretation Comments PHOSPHOROUS (test code = PHOS) 2.9 mg/dl 2.5-4.6 N [id number] 05:27:00 Test Item Value Reference Range Interpretation Comments MAGNESIUM (test code = MAG) 1.7 mg/dl 1.8-2.5 L LACTIC [id number] 22:22:00 Test Item Value Reference Range Interpretation Comments LACTIC ACID (test code = LACT) 1.0 mmol/L 0.5-2.0 N [id number] 20:41:00 Test Item Value Reference Range Interpretation Comments GLUBED (test code = GLUBED) 147 MG/DL 70-105 H [id number] 16:59:00 Test Item Value Reference Range Interpretation Comments GLUBED (test code = GLUBED) 102 MG/DL 70-105 N [id number] 13:59:00 Test Item Value Reference Range Interpretation Comments GLUBED (test code = GLUBED) 126 MG/DL 70-105 H [id number] 13:05:00 Test Item Value Reference Range Interpretation Comments GLUBED (test code = GLUBED) 192 MG/DL 70-105 H [id number] 12:00:00 Test Item Value Reference Range Interpretation Comments GLUBED (test code = GLUBED) 221 MG/DL 70-105 H LACTIC [id number] 11:38:00 Test Item Value Reference Range Interpretation Comments LACTIC ACID (test 2.1 mmol/L 0.5-2.0 HH Critical V alue reported code = LACT) toFirst Name:MADELYN DIXON Last Name:RAMESH PARIS READ BACK AND VERIFIEDby N.LA B.CL, on 07/21/19, @ 113 8. HGBA1C - GLYCOSYLATED [id number] 11:32:00 Test Item Value Reference Range Interpretation Comments GLYCOSYLATED HEMOGLOBIN 11.4 % 4.0-6.0 H Inte rpretive Data: (HA1C) (test code = Caution should be GLYHGB) exercised when interpreting th e HgbA1c in patients wit h hemolytic anemi a, iron deficiency and when the total hemoglobi n is < 9g/dL, due to a decrease in ave rage age of red blood ce lls [id number] 10:56:00 Test Item Value Reference Range Interpretation Comments GLUBED (test code = GLUBED) 301 MG/DL 70-105 HH B-TYPE NATRIURETIC [id number] 10:53:00 Test Item Value Reference Range Interpretation Comments B-TYPE NATRIURETIC PEPTIDE (test 368 pg/ml 0-100 H code = BNP) OSMOLALITY [id number] 10:46:00 Test Item Value Reference Range Interpretation Comments OSMOLALITY SERUM (test code = 319 mOsm/kg 275-295 H OSMO) BASIC METABOLIC [id number] 10:35:00 Test Item Value Reference Range Interpretation Comments SODIUM (test code 133 mmol/L 135-145 L = NA) POTASSIUM (test 4.8 mmol/L 3.6-5.0 N code = K) CHLORIDE (test 99 mmol/L 101-111 L code = CL) CARBON DIOXIDE 22 mmol/L 21-31 N (test code = CO2) GLUCOSE (test code 704 mg/dl 70-100 HH Critical Value = GLU) reported toFirs t Name:ISAAC Last Name:RAMESH ROSAS S READ BACK AND VERIFIEDby N.LA B.CL, on 07/21/19, @ 1035. BLOOD UREA 15 mg/dl 6-20 N NITROGEN (test code = BUN) GLOMERULAR >=60 max >60 The estimated FILTRATION RATE estimate glomerular (test code = GFR) filtration rate is computed usingpatient ra ce, age (>18), sex, and serum creatinin e. If anyof the neede d data elements a re missing the Laboratory mary ot compute an estimation of t he glomerular filtration rate . CREATININE (test 1.41 mg/dL 0.64-1.27 H code = CREAT) CALCIUM (test code 8.1 mg/dL 8.5-10.5 L = CA) Spec Comments: D/C once K is more than 4.5 mmol/L AND CO2 isComments to Phleb: more than 18 mmol/L.Spec Comments: D/C once K+ is more than 4.5 mmol/L [id number] 10:35:00 Test Item Value Reference Range Interpretation Comments PHOSPHOROUS (test code = PHOS) 3.8 mg/dl 2.5-4.6 N Spec Comments: D/C once K is more than 4.5 mmol/L AND CO2 isComments to Phleb: more than 18 mmol/L.Spec Comments: D/C once K+ is more than 4.5 mmol/L [id number] 10:35:00 Test Item Value Reference Range Interpretation Comments MAGNESIUM (test code = MAG) 1.7 mg/dl 1.8-2.5 L Spec Comments: D/C once K is more than 4.5 mmol/L AND CO2 isComments to Phleb: more than 18 mmol/L.Spec Comments: D/C once K+ is more than 4.5 mmol/L ANDLIPID PROFILE (CORONARY RISK)2019-07-21 10:01:00 Test Item Value Reference Range Interpretation Comments TRIGLYCERIDES (test 87 mg/dL 35-160 N code = TRIG) CHOLESTEROL (test code 164 mg/dL 0-200 N = CHOL) HDL CHOLESTEROL (test 44 mg/dL 27-67 N code = HDL) LIPOPROTEIN LDL (test 103 mg/dl 0-100 H LDL NO RMAL code = LDLC) RANGE:Desirable <100 mg/dLBorderline Risk 130-159 mg/dLH igh Risk >1 60 mg/dL CORONARY RISK FACTOR 3.73 Interpr etive Datai1: (test code = RISK) LDL Calc LDL Normal Range Desirable <100 mg/dl Border line High 130-159 m g/dl >160 mg/dl H igh Risk >16 0 mg/dl i2: Cho l/HDL Ratio of Tot al Cholesterol to HDL Risk Men Wo men Very Lo w (1/2 avg) <3.4 <3.3 Low Ris k 4.0 3.8 Avg Risk 5.0 4.5 Moderate Risk (2x avg) 9.5 7.0 High Ris k (3x risk) >23 >11 Spec Comments: O3R-Zejfw on insulin drip. If K is < 3.3 change orComments to Phleb: order to Q1H.Spec Comments: Q1H- Until Glucose is < 150 x 2, then draw Q2H.[id number] 10:01:00 Test Item Value Reference Range Interpretation Comments POTASSIUM (test code = K) 5.2 mmol/L 3.6-5.0 H Spec Comments: X2I-Sqgml on insulin drip. If K is < 3.3 change orComments to Phleb: order to Q1H.Spec Comments: Q1H- Until Glucose is < 150 x 2, then draw Q2H.[id number] 10:01:00 Test Item Value Reference Range Interpretation Comments GLUCOSE (test code = 702 mg/dl 70-100 HH Critica l Value reported GLU) toFirst Name:MADELYN DIXON Last Name:RAMESH JENKINSOSMEL READ BACK AND VERIFIEDby PÉREZ MARKHAM, on 07/21/19, @ 100 1. Spec Comments: Q4A-Tdsqv on insulin drip. If K is < 3.3 change orComments to Phleb: order to Q1H.Spec Comments: Q1H- Until Glucose is < 150 x 2, then draw Q2H.THYROID STIMULATING [id number] 10:01:00 Test Item Value Reference Range Interpretation Comments THYROID STIMULATING HORMONE 1.183 uIU/ml 0.450-5.330 N (test code = TSH) Spec Comments: R2Z-Ufjuz on insulin drip. If K is < 3.3 change orComments to Phleb: order to Q1H.Spec Comments: Q1H- Until Glucose is < 150 x 2, then draw Q2H.[id number] 10:00:00 Test Item Value Reference Range Interpretation Comments GLUBED (test code = GLUBED) 365 MG/DL 70-105 HH LIPID PROFILE (CORONARY RISK)2019-07-21 10:00:00 Test Item Value Reference Range Interpretation Comments TRIGLYCERIDES (test code = TRIG) mg/dL 35-160 CHOLESTEROL (test code = CHOL) mg/dL 0-200 HDL CHOLESTEROL (test code = HDL) mg/dL 27-67 LIPOPROTEIN LDL (test code = LDLC) mg/dl 0-100 CORONARY RISK FACTOR (test code = RISK) Spec Comments: D9P-Rtopx on insulin drip. If K is < 3.3 change orComments to Phleb: order to Q1H.Spec Comments: Q1H- Until Glucose is < 150 x 2, then draw Q2H.[id number] 10:00:00 Test Item Value Reference Range Interpretation Comments POTASSIUM (test code = K) mmol/L 3.6-5.0 Spec Comments: K7W-Dtqxr on insulin drip. If K is < 3.3 change orComments to Phleb: order to Q1H.Spec Comments: Q1H- Until Glucose is < 150 x 2, then draw Q2H.[id number] 10:00:00 Test Item Value Reference Range Interpretation Comments GLUCOSE (test code = GLU) mg/dl 70-100 Spec Comments: Z6Z-Slnag on insulin drip. If K is < 3.3 change orComments to Phleb: order to Q1H.Spec Comments: Q1H- Until Glucose is < 150 x 2, then draw Q2H.THYROID STIMULATING [id number] 10:00:00 Test Item Value Reference Range Interpretation Comments THYROID STIMULATING HORMONE 1.183 uIU/ml 0.450-5.330 N (test code = TSH) Spec Comments: Z0O-Jscnq on insulin drip. If K is < 3.3 change orComments to Phleb: order to Q1H.Spec Comments: Q1H- Until Glucose is < 150 x 2, then draw Q2H.ARTERIAL BLOOD [id number] 09:58:00 Test Item Value Reference Range Interpretation Comments ARTERIAL BLOOD GAS PH (test code 7.405 7.35-7.45 N = PHA) ARTERIAL BLOOD GAS PCO2 (test 41.3 mmHg 45-55 L code = PCO2A) ARTERIAL BLOOD GAS PO2 (test code 93.9 mmHg 80-100 N = PO2A) BICARBONATE TOTAL HCO3 (test code 25.3 mmol/L 22-26 N = HCO3) BASE EXCESS (test code = JAKE) 0.5 mmol/L (+/-)2.0 N ABG O2 SATURATION (test code = 96.6 % 95.0-100.0 N SATA) ABG TYPE (test code = TYPEA) Arterial ARTERIAL FIO2 (test code = FIO2A) 21.0 % ABG VENT MODE (test code = MODEA) Room Air ALLENS TEST (test code = ALLENS) Yes TOTAL HGB (test code = THB) 11.2 g/dL 13.0-17.0 L [id number] 08:45:00 Test Item Value Reference Range Interpretation Comments GLUBED (test code = GLUBED) 531 MG/DL 70-105 HH [id number] 07:22:00 Test Item Value Reference Range Interpretation Comments GLUBED (test code = GLUBED) > 600 MG/DL 70-105 HH OSMOLALITY [id number] 07:06:00 Test Item Value Reference Range Interpretation Comments OSMOLALITY SERUM (test code = 318 mOsm/kg 275-295 H OSMO) [id number] 06:45:00 Test Item Value Reference Range Interpretation Comments GLUBED (test code = GLUBED) > 600 MG/DL 70-105 HH URINALYSIS [id number] 06:12:00 Test Item Value Reference Range Interpretation Comments UA COLOR (test code = COLU) Straw YELLOW UA APPEARANCE (test code = APPU) Clear CLEAR UA GLUCOSE DIPSTICK (test code = 3+ NEGATIVE DGLUU) UA BILIRUBIN DIPSTICK (test code = NEGATIVE NEGATIVE BILU) UA KETONE DIPSTICK (test code = NEGATIVE NEGATIVE KETU) UA SPECIFIC GRAVITY (test code = 1.024 1.001-1.030 SGU) UA BLOOD DIPSTICK (test code = DOMENIC) 1+ NEGATIVE UA PH DIPSTICK (test code = CLAY) 6.0 5.0-9.0 UA PROTEIN DIPSTICK (test code = 2+ NEGATIVE A PROU) UA UROBILINOGEN DIPSTICK (test code NEGATIVE <=1.0 = URO) UA NITRITE DIPSTICK (test code = NEGATIVE NEGATIVE SARAH) UA ASCORBIC ACID DIPSTICK (test NEGATIVE code = AAU) UA LEUKOCYTE ESTERASE DIPSTICK NEGATIVE NEGATIVE (test code = LEUU) UA WBC (test code = WBCU) 0-5 /HPF 0-5 UA RBC (test code = RBCU) 0-5 /HPF 0-5 UA EPITHELIAL CELLS (test code = None /LPF NONE-FEW EPIU) UA BACTERIA (test code = BACU) None /HPF NONE SEEN BASIC METABOLIC [id number] 06:07:00 Test Item Value Reference Range Interpretation Comments SODIUM (test code = 129 mmol/L 135-145 L NA) POTASSIUM (test code 4.5 mmol/L 3.6-5.0 N = K) CHLORIDE (test code = 93 mmol/L 101-111 L CL) CARBON DIOXIDE (test 26 mmol/L 21-31 N code = CO2) GLUCOSE (test code = 744 mg/dl 70-100 HH Critica l Value GLU) reported toFirs t Name:MARCOS Last Name:BECKIE AXEL READ BACK AND VERIFIEDby N.LA BNolaBP, on 07/21/19, @ 0444. BLOOD UREA NITROGEN 14 mg/dl 6-20 N (test code = BUN) GLOMERULAR FILTRATION 48 >60 L The es timated RATE (test code = glomerular filtration GFR) rate is compute d usingpatient ra ce, age (>18), sex, and serum creatinine. If anyof the needed data elements are mi ssing the Laboratory cannot compute an stormy mation of the glomerul ar filtration rate . CREATININE (test code 1.59 mg/dL 0.64-1.27 H = CREAT) CALCIUM (test code = 8.7 mg/dL 8.5-10.5 N CA) LIVER FUNCTION [id number] 06:07:00 Test Item Value Reference Range Interpretation Comments TOTAL PROTEIN (test code = PROT) 5.9 g/dL 6.7-8.2 L ALBUMIN (test code = ALB) 3.0 g/dL 3.2-5.5 L BILIRUBIN TOTAL (test code = BILT) 0.60 mg/dL 0.2-1.3 N BILIRUBIN DIRECT (test code = 0.2 mg/dL 0.00-0.20 N BILD) SGOT/AST (test code = AST) 26 U/L 10-42 N SGPT/ALT (test code = ALT) 17 U/L 10-60 N ALKALINE PHOSPHATASE (test code = 86 U/L 42-121 N ALKP) [id number] 06:07:00 Test Item Value Reference Range Interpretation Comments ACETAMINOPHEN (test code = ACET) < 10.0 ug/ml 10.0-30.0 L [id number] 06:07:00 Test Item Value Reference Range Interpretation Comments SALICYLATE (test code = CARISA) < 4.0 mg/dl 0.0-30.0 N [id number] 06:07:00 Test Item Value Reference Range Interpretation Comments ALCOHOL (test code = < 5 mg/dl Interpr etive Data:il: ALC) Ethanol Level To convert into le gal units, divide r esult by 1,000 BETA [id number] 06:07:00 Test Item Value Reference Range Interpretation Comments BETA HYDROBUTYRATE (test code = 0.21 mmol/L 0.02-0.27 N BETHYD) DRUGS OF ABUSE SCREEN [id number] 05:57:00 Test Item Value Reference Range Interpretation Comments UR COCAINE (test code NEGATIVE NEGATIVE This i s a toxicology = COCAU) qualitative scr eening test only. Ifconfirmatory testing is desired please request drug screenconf irmation. These results a re unconfirmed and should beused only for medical purposes. Cut-o ff concentration f or Cocaine is 300 ng/mLRec ommended screening cut-o ff concentrations by theSubstance Ab use and Mental Health S ervices Administration. UR CANABINOIDS (test NEGATIVE NEGATIVE This is a toxicology code = CANU) qualitative scr eening test only. Ifconfirmatory testing is desired please request drug screenconf irmation. These results a re unconfirmed and should beused only for medical purposes. Cut-o ff concentration f or THC is 50 ng/mLRecomme nded screening cut-o ff concentrations by theSubstance Ab use and Mental Health S ervices Administration. UR AMPHETAMINE (test NEGATIVE NEGATIVE The ing estion of natural code = AMPHU) herbal and julia nt productscontain ing Ephedra/Ephedra -Metabolit es can produce in urineone or mor e substances capa ble of cross-reacting withAmphetamine /Methamphe enzo immunoas says. This testprovid es a preliminary res ult only. A more specificalterna tive chemical method must be used to obtain aconfirmed analytical resu lt. This is a toxicology qualitative scr eening test only. Ifconfirmatory testing is desired please request drug screenconf irmation. These results a re unconfirmed and should beused only for medical purposes. Cut-o ff concentration f or Amphetamines is 1000 ng/mLRecommende d screening cut-o ff concentrations by thebstance Ab use and [facility] Administration. UR BARBITURATE (test NEGATIVE NEGATIVE This is a toxicology code = BARBQLU) qualitative screening test only. Ifconfirmatory testing is desired please request drug screenconf irmation. These results a re unconfirmed and should beused only for medical purposes. Cut-o ff concentration f or Barbiturates is 200 ng/mLRecommende d screening cut-o ff concentrations by the[facility] Ab use and [facility] Administration. UR BENZODIAZEPINE NEGATIVE NEGATIVE This is a toxicology (test code = BENZU) qualitat meredith screening test only. Ifconfirmatory testing is desired please request drug screenconf irmation. These results a re unconfirmed and should beused only for medical purposes. Cut-o ff concentration f or Benzodiazepines is 200 ng/mLRecommende d screening cut-o ff concentrations by theUn[facility] Ab use and [facility] Administration. UR OPIATES QUAL (test NEGATIVE NEGATIVE This i s a toxicology code = OPIAQLU) qualitative screening test only. Ifconfirmatory testing is desired please request drug screenconf irmation. These results a re unconfirmed and should beused only for medical purposes. Cut-o ff concentration f or Opiates is 300 ng/mLRec ommended screening cut-o ff concentrations by thebstance Ab use and [facility]. UR PHENCYCLIDINE NEGATIVE NEGATIVE This is a t oxicology (PCP) (test code = qualitati ve screening PHENCU) test only. Ifconfirmatory testing is desired please request drug screenconf irmation. These results a re unconfirmed and should beused only for medical purposes. Cut-o ff concentration f or PCP is 25 ng/mLRecomme nded screening cut-o ff concentrations by thebstance Ab use and Mental Health [facility]. - XR CHEST 1 [id number] 05:40:00Patient Name: MIKA HERRERA Unit No: [id number] EXAMS: CPT: [id number] XR CHEST 1 V [id number] PORTABLE CHEST, 07/21/2019. Comparison: None. CLINICAL: AMS. COMMENT: The heart, mediastinum, hilar regions and pulmonary vasculature appear within normal limits. The lungs are free of active disease. The bony thorax is intact. IMPRESSION: No evidence to suggest active cardiopulmonary disease. at 0540 Reported and signed by: Jadiel Ceballos MD CC: Hernan Shukla MD Technologist: Kath Morrow Time: DAP (Gy m2): Air Kerma (mGy): Trscr Dt/Tm: 07/21/2019 (0540) by:[email or web address] Orig Print D/T: S: 07/21/2019 (0543) BATCH NO: N/A Name: MIKA HERRERA [facility] Phys: Hernan Crarillo MD [address] [facility] : 1960 Age: 59 Sex: [place] [address] Loc: N.ERS Exam Date: 07/21/2019 Status: REG ER PH: FAX: PAGE 1 Signed ReportTROPONIN-I 2019-07-21 05:36:00 Test Item Value Reference Range Interpretation Comments TROPONIN-I (test code = TROPI) 0.034 ng/mL 0.000-0.034 N BASIC METABOLIC [id number] 05:13:00 Test Item Value Reference Range Interpretation Comments SODIUM (test code = 129 mmol/L 135-145 L NA) POTASSIUM (test code 4.5 mmol/L 3.6-5.0 N = K) CHLORIDE (test code = 93 mmol/L 101-111 L CL) CARBON DIOXIDE (test 26 mmol/L 21-31 N code = CO2) GLUCOSE (test code = 744 mg/dl 70-100 HH Critica l Value GLU) reported toFirs t Name:MARCOS Last Name:BECKIE REYNA READ BACK AND VERIFIEDby N.LA B.BP, on 07/21/19, @ 0444. BLOOD UREA NITROGEN 14 mg/dl 6-20 N (test code = BUN) GLOMERULAR FILTRATION 48 >60 L The es timated RATE (test code = glomerular filtration GFR) rate is compute d usingpatient ra ce, age (>18), sex, and serum creatinine. If anyof the needed data elements are mi ssing the Laboratory cannot compute an stormy mation of the glomerul ar filtration rate . CREATININE (test code 1.59 mg/dL 0.64-1.27 H = CREAT) CALCIUM (test code = 8.7 mg/dL 8.5-10.5 N CA) LIVER FUNCTION [id number] 05:13:00 Test Item Value Reference Range Interpretation Comments TOTAL PROTEIN (test code = PROT) 5.9 g/dL 6.7-8.2 L ALBUMIN (test code = ALB) 3.0 g/dL 3.2-5.5 L BILIRUBIN TOTAL (test code = BILT) 0.60 mg/dL 0.2-1.3 N BILIRUBIN DIRECT (test code = 0.2 mg/dL 0.00-0.20 N BILD) SGOT/AST (test code = AST) 26 U/L 10-42 N SGPT/ALT (test code = ALT) 17 U/L 10-60 N ALKALINE PHOSPHATASE (test code = 86 U/L 42-121 N ALKP) [id number] 05:13:00 Test Item Value Reference Range Interpretation Comments ACETAMINOPHEN (test code = ACET) < 10.0 ug/ml 10.0-30.0 L [id number] 05:13:00 Test Item Value Reference Range Interpretation Comments SALICYLATE (test code = CARISA) < 4.0 mg/dl 0.0-30.0 N [id number] 05:13:00 Test Item Value Reference Range Interpretation Comments ALCOHOL (test code = < 5 mg/dl Interpr etive Data:il: ALC) Ethanol Level To convert into le gal units, divide r esult by 1,000 BETA [id number] 05:13:00 Test Item Value Reference Range Interpretation Comments BETA HYDROBUTYRATE (test code = mmol/L 0.02-0.27 BETHYD) BASIC METABOLIC [id number] 04:44:00 Test Item Value Reference Range Interpretation Comments SODIUM (test code = 129 mmol/L 135-145 L NA) POTASSIUM (test code 4.5 mmol/L 3.6-5.0 N = K) CHLORIDE (test code = 93 mmol/L 101-111 L CL) CARBON DIOXIDE (test 26 mmol/L 21-31 N code = CO2) GLUCOSE (test code = 744 mg/dl 70-100 HH Critica l Value GLU) reported toFirs t Name:MARCOS Last Name:BECKIE REYNA READ BACK AND VERIFIEDby N.LA B.BP, on 07/21/19, @ 0444. BLOOD UREA NITROGEN 14 mg/dl 6-20 N (test code = BUN) GLOMERULAR FILTRATION 48 >60 L The es timated RATE (test code = glomerular filtration GFR) rate is compute d usingpatient ra ce, age (>18), sex, and serum creatinine. If anyof the needed data elements are mi ssing the Laboratory cannot compute an stormy mation of the glomerul ar filtration rate . CREATININE (test code 1.59 mg/dL 0.64-1.27 H = CREAT) CALCIUM (test code = 8.7 mg/dL 8.5-10.5 N CA) LIVER FUNCTION [id number] 04:44:00 Test Item Value Reference Range Interpretation Comments TOTAL PROTEIN (test code = PROT) 5.9 g/dL 6.7-8.2 L ALBUMIN (test code = ALB) 3.0 g/dL 3.2-5.5 L BILIRUBIN TOTAL (test code = BILT) mg/dL 0.2-1.3 BILIRUBIN DIRECT (test code = BILD) mg/dL 0.00-0.20 SGOT/AST (test code = AST) U/L 10-42 SGPT/ALT (test code = ALT) U/L 10-60 ALKALINE PHOSPHATASE (test code = U/L 42-121 ALKP) [id number] 04:44:00 Test Item Value Reference Range Interpretation Comments ACETAMINOPHEN (test code = ACET) ug/ml 10.0-30.0 [id number] 04:44:00 Test Item Value Reference Range Interpretation Comments SALICYLATE (test code = CARISA) mg/dl 0.0-30.0 [id number] 04:44:00 Test Item Value Reference Range Interpretation Comments ALCOHOL (test code = ALC) mg/dl BETA [id number] 04:44:00 Test Item Value Reference Range Interpretation Comments BETA HYDROBUTYRATE (test code = mmol/L 0.02-0.27 BETHYD) [id number] 04:36:00 Test Item Value Reference Range Interpretation Comments GLUBED (test code = GLUBED) > 600 MG/DL 70-105 HH CBC W/AUTO [id number] 04:36:00 Test Item Value Reference Range Interpretation Comments WHITE BLOOD CELL (test code = 8.9 x10 3/uL 3.2-11.5 N WBC) RED BLOOD CELL (test code = 4.90 x10(6)/m 4.20-5.70 N RBC) HEMOGLOBIN (test code = HGB) 11.1 g/dL 12.9-17.3 L HEMATOCRIT (test code = HCT) 35.1 % 38.7-51.0 L MEAN CELL VOLUME (test code = 72 fL 80-100 L MCV) MEAN CELL HGB (test code = MCH) 22.7 pg 26.7-33.3 L MEAN CELL HGB CONCENTRATION 31.6 g/dL 30.0-34.0 N (test code = MCHC) RED CELL DISTRIBUTION WIDTH 14.1 % 11.3-14.5 N (test code = RDW) PLATELET COUNT (test code = 159 x10 3/uL 130-408 N PLT) NEUTROPHIL % (test code = NT%) 75.8 % 40.0-70.0 H IMMATURE GRANULOCYTE % (test 0.1 % 0.0-2.0 N code = IG%) LYMPHOCYTE % (test code = LY%) 16.2 % 20-40 L MONOCYTE % (test code = MO%) 5.7 % 1-10 N EOSINOPHIL % (test code = EO%) 1.8 % 0.0-5.0 N BASOPHIL % (test code = BA%) 0.4 % 0.0-1.0 N NUCLEATED RBC % (test code = 0.0 % 0.0-0.9 N NRBC%) NEUTROPHIL # (test code = NT#) 6.8 x10 3/uL 1.6-7.2 N LYMPHOCYTE # (test code = LY#) 1.45 x10 3/uL 1.1-2.7 N MONOCYTE # (test code = MO#) 0.5 x10 3/uL 0.3-0.8 N EOSINOPHIL # (test code = EO#) 0.2 x10 3/uL 0.0-0.5 N BASOPHIL # (test code = BA#) 0.0 x10 3/uL 0.0-0.1 N - CT HEAD/BRAIN W/O [id number] 04:30:00Patient Name: MIKA HERRERA Unit No: [id number] EXAMS: CPT: [id number] CT HEAD/BRAIN W/O CONT [id number] CT HEAD WITHOUT CONTRAST: CLINICAL HISTORY: Altered mental status COMPARISON: None. TECHNIQUE: Axial CT of the brain without IV contrast wasperformed. Coronal and sagittal reformatted images are submitted. FINDINGS: The ventricles are normal in size and shape. No evidence of an intra-axial or extra-axial mass is seen, and no shift of the midline structures is present. There is no evidence of acute cerebral infarction. 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 No evidence of subarachnoid or parenchymal hemorrhage or extra-axial fluid collection is seen. The visualized paranasal sinuses are clear. IMPRESSION: No acute abnormality. DLP: 503.64 mGy-cm CT dose optimization is achieved for this examination by the use of a CT protocol in accordance with ACR practice standards and adherence to ruby software developer's recommendations with automated exposure control. at 0430 Reported and signed by: Layla Thakur MD CC: Hernan Shukla MD Technologist: Sandra Garcia CTDI: 31.36 DLP: [phone] Trscr Dt/Tm: 07/21/2019 (0430) by:[email or web address] Orig Print D/T: S: 07/21/2019 (0433) BATCH NO: N/A Name: MIKA HERRERA [facility] Phys: Hernan Swift MD [address] : 1960 Age: 59 Sex: [place] [address] Loc: N.ERS Exam Date: 07/21/2019 Status: PRE ER PH: FAX:PAGE 1 Signed Report
--- NOTE | 2021-08-12 17:34 | RAD REPORT ---
EXAM DESCRIPTION: RAD - Chest Single View - 08/12/2021 5:27 pm CLINICAL HISTORY: SOB Chest pain. COMPARISON: No comparisons FINDINGS: Portable technique limits examination quality. The lungs are grossly clear. The heart is normal in size. No displaced fractures. IMPRESSION: No acute intrathoracic process suspected.
[2021-08-12 18:14] LABS: Absolute Lymphocytes (CBC) 1.2 K/uL (0.7-4.9); Hematocrit 31.2 % (39.6-49.0); MPV 9.4 fL (7.6-11.3); RBC Red Blood Cell Count 4.29 M/uL (4.33-5.43)
[2021-08-12 18:43] LABS: Blood Morphology Comment NOT SEEN (NOT SEEN); Platelet Estimate ADEQ; White Blood Cell Scan OK (OK)
[2021-08-12 20:57] LABS: Urine Blood Trace-intact (Negative); Urine Glucose 2+ (Negative); Urine Protein 2+ (Negative)
[2021-08-12 21:45] LABS: Urine Bacteria <20 /HPF (NONE SEEN); Urine RBC <5 /HPF (NONE SEEN)
[2021-08-12 21:53] LABS: ALT/SGPT 12 U/L (12-78); AST/SGOT 8 U/L (15-37); Alkaline Phosphatase 99 U/L (45-117); BUN Blood Urea Nitrogen 58 mg/dL (7-18); Bicarbonate 21 mmol/L (21-32); Bilirubin Direct < 0.1 mg/dL (0-0.2); Bilirubin Total 0.4 mg/dL (0.2-1.0); Protein, Total 7.6 g/dL (6.4-8.2); Sodium Level 133 mmol/L (136-145)
[2021-08-12 21:54] LABS: Glucose Level 421 mg/dL (74-106); NT PRO-BNP 3019 pg/mL (<125)
[2021-08-12] MEDS ORDERED: ALBUTEROL 2.5 MG/3 ML NEB SOL ONE (22:11)
[2021-08-12] MEDS ORDERED: INSULIN -REGULAR HUMAN 50 UNIT/0.5 ML ML ONE (22:12)
[2021-08-12] MEDS ORDERED: CALCIUM GLUCONATE 1 GM IVPB 1 GM/100 ML BAG IV ONE (22:13)
--- NOTE | 2021-08-12 22:20 | EDPHYS ---
Physician Documentation [facility] Name: Earl Garcia Age: 61 yrs Sex: Male : 1960 Arrival Date: 08/12/2021 Time: 16:10 Bed 5 Private MD: ED Physician Chung Dial HPI: 08/12 17:15 This 61 yrs old Black Male presents to ER via EMS with complaints of Shortness Of cp Breath. 17:15 The patient has shortness of breath with light activity. cp Historical: - Home Meds: 16:13 atorvastatin 40 mg Oral tab 1 tab once daily [Active]; carvedilol 12.5 mg Oral tab 1 jh6 tab 2 times per day [Active]; Lantus 100 unit/mL Sub-Q soln pt take 30 units in the morning and 20 at night. [Active]; lisinopril 20 mg Oral tab 2 tabs once daily [Active]; - PMHx: 16:13 CVA; Diabetes - IDDM; Glaucoma; Hyperlipidemia; Hypertension; jh6 - Immunization history:: Adult Immunizations up to date. - Social history:: Smoking status: Patient denies any tobacco usage or history of. ROS: 17:20 Constitutional: Negative for chills, fever, poor PO intake. cp 17:20 Eyes: Negative for injury, pain, redness, and discharge. cp 17:20 ENT: Negative for drainage from ear(s), ear pain, sore throat, difficulty swallowing, difficulty handling secretions. 17:20 Cardiovascular: Negative for chest pain, edema, palpitations. 17:20 Respiratory: Positive for shortness of breath, Negative for cough, wheezing. 17:20 Abdomen/GI: Negative for abdominal pain, nausea, vomiting, and diarrhea. 17:20 Neuro: Negative for altered mental status, dizziness, headache, syncope, weakness. 17:20 All other systems are negative. Exam: 17:25 Constitutional: The patient appears in no acute distress, alert, awake, cp non-diaphoretic, non-toxic, well developed, well nourished. 17:25 Head/Face: Normocephalic, atraumatic. cp 17:25 Eyes: Periorbital structures: appear normal, Conjunctiva: normal, no exudate, no injection, Sclera: no appreciated abnormality, Lids and lashes: appear normal, bilaterally. 17:25 ENT: External ear(s): are unremarkable, Nose: is normal, Mouth: Lips: moist, Oral mucosa: moist, Posterior pharynx: Airway: no evidence of obstruction, patent. 17:25 Chest/axilla: Inspection: normal. 17:25 Cardiovascular: Rate: normal, Rhythm: regular, Edema: is not appreciated, JVD: is not appreciated. 17:25 Respiratory: the patient does not display signs of respiratory distress, Respirations: normal, no use of accessory muscles, no retractions, labored breathing, is not present, Breath sounds: are clear throughout, no decreased breath sounds, no stridor, no wheezing. 17:25 Abdomen/GI: Inspection: abdomen appears normal, Palpation: abdomen is soft and non-tender, in all quadrants. 17:25 Back: pain, is absent, ROM is normal. 17:25 Neuro: Orientation: to person, place \\T\\ time. Mentation: is normal, Motor: moves all fours, strength is normal, Sensation: is normal. Vital Signs: 18:15 BP 155 / 68; Pulse 59; Resp 20; Pulse Ox 100% ; Pain 0/10; jh6 19:49 BP 158 / 75; Pulse 67; Resp 19 S; Pulse Ox 100% on R/A; as6 20:57 BP 181 / 80; Pulse 73; Resp 18 S; Pulse Ox 100% on R/A; as6 21:40 BP 169 / 81; Pulse 72; Resp 18; Pulse Ox 100% on R/A; tw5 21:41 BP 160 / 84 Supine; Pulse 78; Resp 18; Pulse Ox 100% on R/A; tw5 21:41 BP 120 / 74 Sitting; Pulse 83; Resp 18; Pulse Ox 100% on R/A; tw5 21:41 BP 122 / 74 Standing; Pulse 93; Resp 18; Pulse Ox 100% on R/A; tw5 22:14 BP 163 / 86; Pulse 80; Resp 18; Pulse Ox 100% on R/A; tw5 08/13 10:43 BP 170 / 93; Pulse 80; Resp 16; Pulse Ox 99% on R/A; dover MDM: 08/12 16:37 Patient medically screened. cp 22:00 Data reviewed: vital signs, nurses notes. Data interpreted: Pulse oximetry: on room air kb is 100 %. Interpretation: normal. Counseling: I had a detailed discussion with the patient and/or guardian regarding: the historical points, exam findings, and any diagnostic results supporting the discharge/admit diagnosis, lab results, radiology results, the need for further work-up and treatment in the hospital. 22:04 Physician consultation: Drew ALANIS was contacted at 22:04, regarding admission, to the telemetry unit. patient's condition, and will see patient in ED. 08/12 17:13 Order name: Basic Metabolic Panel; Complete Time: 23:42 cp 08/12 17:13 Order name: CBC with Diff; Complete Time: 18:48 cp 08/12 18:23 Interpretation: Normal except: RBC 4.29; HGB 9.9; HCT 31.2; MCV 72.7; MCH 23.0; MCHC cp 31.6; RDW 16.9; DWAYNE% 80.6; LYM% 13.0. 08/12 17:13 Order name: LFT's; Complete Time: 23:42 cp 08/12 17:13 Order name: Magnesium; Complete Time: 23:42 cp 08/12 17:13 Order name: NT PRO-BNP; Complete Time: 23:42 cp 08/12 17:13 Order name: PT-INR; Complete Time: 18:48 cp 08/12 17:13 Order name: Troponin HS; Complete Time: 23:42 cp 08/12 17:13 Order name: Urine Microscopic Only; Complete Time: 21:47 cp 08/12 17:28 Order name: COVID-19 SARS RT PCR (Document "Date of Onset" if Symptomatic); Complete bd Time: 19:18 08/12 18:19 Order name: CBC Smear Scan; Complete Time: 18:48 EDMS 08/12 20:57 Order name: Urine Dipstick-Ancillary; Complete Time: 20:58 EDMS 08/12 22:43 Order name: Folic Acid, RBC EDMS 08/12 22:43 Order name: Hemoglobin A1c; Complete Time: 23:10 EDMS 08/12 22:43 Order name: Ur Protein; Complete Time: 09:19 EDMS 08/12 22:47 Order name: Uric Acid; Complete Time: 23:42 EDMS 08/12 22:48 Order name: Creatine Phosphokinase; Complete Time: 23:42 EDMS 08/12 22:48 Order name: T4 Free; Complete Time: 23:42 EDMS 08/12 22:48 Order name: Thyroid Stimulating Hormone; Complete Time: 23:42 EDMS 08/12 22:48 Order name: Transferrin Sat/Iron Binding; Complete Time: 23:42 EDMS 08/12 22:48 Order name: Ferritin; Complete Time: 23:42 EDMS 08/12 22:48 Order name: Vitamin B12 Level; Complete Time: 23:42 EDMS 08/13 04:08 Order name: PTH Intact; Complete Time: 09:19 EDMS 08/12 17:13 Order name: XRAY Chest (1 view); Complete Time: 18:23 cp 08/12 17:13 Order name: EKG; Complete Time: 17:14 cp 08/12 17:13 Order name: Cardiac monitoring; Complete Time: 19:33 cp 08/12 17:13 Order name: EKG - Nurse/Tech; Complete Time: 19:49 cp 08/12 17:13 Order name: IV Saline Lock; Complete Time: 19:33 cp 08/12 17:13 Order name: Labs collected and sent; Complete Time: 19:33 cp 08/12 17:13 Order name: O2 Per Protocol; Complete Time: 19:33 cp 08/12 17:13 Order name: O2 Sat Monitoring; Complete Time: 19:33 cp 08/12 17:13 Order name: Urine Dipstick-Ancillary (obtain specimen); Complete Time: 20:57 cp 08/12 18:55 Order name: Orthostatics; Complete Time: 21:48 kb 08/12 22:43 Order name: Renal Ultrasound-Complete; Complete Time: 01:38 EDMS 08/13 00:31 Order name: CONS Physician Consult 08/13 06:03 Order name: Basic Metabolic Panel; Complete Time: 09:19 EDMS 08/13 06:03 Order name: Phosphorus; Complete Time: 09:19 EDMS 08/13 08:55 Order name: Glucose, Ancillary Testing; Complete Time: 09:19 EDMS 08/13 11:47 Order name: Glucose, Ancillary Testing; Complete Time: 09:19 EDMS 08/13 18:11 Order name: Glucose, Ancillary Testing; Complete Time: 09:19 EDMS Administered Medications: 17:47 CANCELLED (Physician Discretion): NS 0.9% 500 ml IV at bolus once cp 22:19 Drug: Albuterol 2.5 mg Route: Inhalation; 08/13 00:15 Follow up: Response: No adverse reaction as6 08/12 22:20 Drug: Calcium Gluconate 1 grams Route: IVPB; Infused Over: 60 mins; Site: right forearm;08/13 00:15 Follow up: Response: No adverse reaction; IV Status: Completed infusion; IV Intake: as6 100ml 08/12 22:24 Drug: Insulin Regular Human 10 units {Co-Signature: as6 (Bang Shabazz RN).} Route: tw5 IVP; Site: left forearm; 08/13 00:16 Follow up: Response: No adverse reaction as6 Disposition: 08/14 09:04 Co-signature as Attending Physician, Chung Dial MD I agree with the assessment and sp3 plan of care. Disposition Summary: 08/12/21 22:19 Hospitalization Ordered Hospitalization Status: Inpatient Admission kb Provider: Jerome Kang Condition: Stable kb Problem: new kb Symptoms: are unchanged kb Bed/Room Type: Standard kb Location: Telemetry/MedSurg (Inpatient)(08/13/21 17:26) dw Room Assignment: 229(08/13/21 17:26) dw Diagnosis - Acute kidney failure, unspecified kb - Hyperkalemia kb Forms: - Medication Reconciliation Form kb - SBAR form kb Signatures: Dispatcher [employer] EDMaricarmen Lezama FNP-C FNP-Ckb Woody, Diana, RN RN Papito Mccormack PA PA cp Garcia, Cindy, RN RN Chung Dial MD MD sp3 Karina Brock tw5 Petra Castillo RN RN 6 Bang Shabazz RN as6 Bang Shabazz RN as6 Corrections: (The following items were deleted from the chart) 08/12 17:47 17:45 NS 0.9% 500 ml IV at bolus once ordered. cp cp 22:40 22:19 Telemetry/MedSurg (Inpatient) kb cg 22:40 22:19 kb cg 22:43 22:43 Iron ordered. EDMS EDMS 22:46 22:42 Vitamin B12 Level ordered. EDMS EDMS 22:46 22:43 Creatine Phosphokinase ordered. EDMS EDMS 22:46 22:43 Ferritin ordered. EDMS EDMS 22:43 T4 Free ordered. EDMS EDMS 22:43 Thyroid Stimulating Hormone ordered. EDMS EDMS 22:43 Transferrin Sat/Iron Binding ordered. EDMS EDMS 22:43 Uric Acid ordered. EDMS EDMS 08/13 16:08/12 22:40 [facility] ER HOLD cg dw 08/13 16:08/12 22:40 ERHOLD- cg dw
--- NOTE | 2021-08-12 22:20 | ER ---
Nurse's Notes [facility] Name: Earl Garcia Age: 61 yrs Sex: Male : 1960 Arrival Date: 08/12/2021 Time: 16:10 Bed 5 Private MD: Diagnosis: Acute kidney failure, unspecified;Hyperkalemia Presentation: 08/12 16:12 Chief complaint: EMS states: SOB on exertion since yesterday , was recently d/c from the [facility] for htn, started two new BP meds , was seen at his doctor's office and they told him his labs were abnormal and he shou;d be seen in the ER , does not know which labs were abnormal, EMS reports pt was orthostatic positive, started an IV and fluids. Ebola Screen: Patient negative for fever greater than or equal to 101.5 degrees Fahrenheit, and additional compatible Ebola Virus Disease symptoms Patient denies exposure to infectious person. Patient denies travel to an Ebola-affected area in the 21 days before illness onset. No symptoms or risks identified at this time. Initial Sepsis Screen: Does the patient meet any 2 criteria? No. Patient's initial sepsis screen is negative. Does the patient have a suspected source of infection? No. Patient's initial sepsis screen is negative. Risk Assessment: Do you want to hurt yourself or someone else? Patient reports no desire to harm self or others. Onset of symptoms was August 11, 2021. 16:12 Method Of Arrival: EMS: [facility] 16:12 Acuity: LEN 3 08/13 02:14 Coronavirus screen: At this time, the client does not indicate any symptoms associated as6 with coronavirus-19. Triage Assessment: 08/12 16:18 General: Appears in no apparent distress. comfortable, slender, well groomed. jh6 Historical: - Home Meds: 16:13 atorvastatin 40 mg Oral tab 1 tab once daily [Active]; carvedilol 12.5 mg Oral tab 1 jh6 tab 2 times per day [Active]; Lantus 100 unit/mL Sub-Q soln pt take 30 units in the morning and 20 at night. [Active]; lisinopril 20 mg Oral tab 2 tabs once daily [Active]; - PMHx: 16:13 CVA; Diabetes - IDDM; Glaucoma; Hyperlipidemia; Hypertension; jh6 - Immunization history:: Adult Immunizations up to date. - Social history:: Smoking status: Patient denies any tobacco usage or history of. Screenin:14 Abuse screen: Denies threats or abuse. Nutritional screening: No deficits noted. jh6 Tuberculosis screening: No symptoms or risk factors identified. Fall Risk None identified. Assessment: 16:12 General: Appears in no apparent distress. comfortable, slender, well groomed, well jh6 developed, Behavior is calm, cooperative. Pain: Denies pain. 16:40 Cardiovascular: Rhythm is sinus rhythm. jh6 16:40 Respiratory: No deficits noted. Airway is patent Respiratory effort is even, unlabored, jh6 relaxed, Breath sounds are clear. 16:45 Reassessment: No changes from previously documented assessment. Patient and/or family jh6 updated on plan of care and expected duration. Pain level reassessed. 18:00 Reassessment: Patient and/or family updated on plan of care and expected duration. Pain jh6 level reassessed. pt has not complaints of pain or discomfort. 19:49 Reassessment: Patient appears in no apparent distress at this time. Patient and/or as6 family updated on plan of care and expected duration. Pain level reassessed. Patient is alert, oriented x 3, equal unlabored respirations, skin warm/dry/pink. 21:40 Reassessment: Patient states feeling better. Patient states symptoms have improved. "I tw5 feel pretty good. I just need some water and my urinal back.". Neuro: Level of Consciousness is awake, alert, obeys commands, Oriented to person, place, time, situation. 22:14 General: Reports " when I was in the [facility] they told me that my kidneys were not tw5 functioning very well that they were only functioning at 30 %". : Urine is clear. Vital Signs: 18:15 BP 155 / 68; Pulse 59; Resp 20; Pulse Ox 100% ; Pain 0/10; jh6 19:49 BP 158 / 75; Pulse 67; Resp 19 S; Pulse Ox 100% on R/A; as6 20:57 BP 181 / 80; Pulse 73; Resp 18 S; Pulse Ox 100% on R/A; as6 21:40 BP 169 / 81; Pulse 72; Resp 18; Pulse Ox 100% on R/A; tw5 21:41 BP 160 / 84 Supine; Pulse 78; Resp 18; Pulse Ox 100% on R/A; tw5 21:41 BP 120 / 74 Sitting; Pulse 83; Resp 18; Pulse Ox 100% on R/A; tw5 21:41 BP 122 / 74 Standing; Pulse 93; Resp 18; Pulse Ox 100% on R/A; tw5 22:14 BP 163 / 86; Pulse 80; Resp 18; Pulse Ox 100% on R/A; tw5 08/13 10:43 BP 170 / 93; Pulse 80; Resp 16; Pulse Ox 99% on R/A; dover ED Course: 08/12 16:10 Patient arrived in ED. iw 16:12 Petra Castillo, RN is Primary Nurse. jh6 16:14 Placed in gown. Bed in low position. Call light in reach. Side rails up X 1. jh6 16:14 Maintain EMS IV. Dressing intact. Good blood return noted. Site clean \\T\\ dry. Gauge \\T\\ 6 site: 22g l fa. 16:15 Triage completed. iw 16:18 Papito Levy PA is PHCP. cp 16:18 Chung Dial MD is Attending Physician. cp 17:27 XRAY Chest (1 view) In Process Unspecified. EDMS 17:45 IV discontinued, pt pulled iv out that ems started when turning over in the bed. jh6 18:14 Inserted saline lock: 24 gauge in left forearm, using aseptic technique. 6 18:55 PHCP role handed off by Papito Levy PA kb 18:55 Maricarmen Vasquez FNP-C is PHCP. kb 19:49 Arm band placed on. as6 20:57 Diet tray given. as6 21:40 bobbin cleaner on. Pulse ox on. NIBP on. Door closed. Moved to private room. Diet: tw Patient given water. 21:48 Troponin HS Sent. tw5 21:48 NT PRO-BNP Sent. tw5 21:48 Basic Metabolic Panel Sent. tw5 21:48 LFT's Sent. tw5 21:48 Magnesium Sent. tw5 21:57 Notified Nurse Practitioner and/or Physician Sock Turner of a critical lab result(s), bb potassium of 6.0 and glucose of 421 Maricarmen Vasquez NP notified. 22:19 Jerome Kang MD is Hospitalizing Provider. kb 23:27 Renal Ultrasound-Complete In Process Unspecified. EDMS 08/13 02:14 No provider procedures requiring assistance completed. Patient admitted, IV remains in as6 place. Administered Medications: 08/12 17:47 CANCELLED (Physician Discretion): NS 0.9% 500 ml IV at bolus once cp 22:19 Drug: Albuterol 2.5 mg Route: Inhalation; tw5 08/13 00:15 Follow up: Response: No adverse reaction as6 08/12 22:20 Drug: Calcium Gluconate 1 grams Route: IVPB; Infused Over: 60 mins; Site: right forearm;tw5 08/13 00:15 Follow up: Response: No adverse reaction; IV Status: Completed infusion; IV Intake: as6 100ml 08/12 22:24 Drug: Insulin Regular Human 10 units {Co-Signature: as6 (Bang Shabazz RN).} Route: tw5 IVP; Site: left forearm; 08/13 00:16 Follow up: Response: No adverse reaction as6 Intake: 00:15 IV: 100ml; Total: 100ml. as6 Outcome: 08/12 22:19 Decision to Hospitalize by Provider. kb 08/13 02:14 Admitted to ER Hold. Please see [facility] for further documentation. as6 Condition: stable 18:39 Admitted to Med/surg accompanied by nurse, via wheelchair, room 229. ww 18:39 Patient left the ED. ww Signatures: Dispatcher [employer] EDPA Maricarmen Vasquez, MARK MORAN-Yanna Casanova RN RN bb Williams, Irene, RN RN iw Page, Corey, PA PA cp Wood, Tiffany tw5 Bang Shabazz RN RN as6 Petra Castillo RN RN [facility] Lilia Brock RN RN ww Au-Stager, Heather, RN RN dover Bang Shabazz RN as6 Corrections: (The following items were deleted from the chart) 08/12 18:48 18:40 Reassessment: No changes from previously documented assessment. Patient and/or jh6 family updated on plan of care and expected duration. Pain level reassessed. [facility] 18:48 18:40 Cardiovascular: Rhythm is sinus rhythm [place] [id number]
[2021-08-12 23:28] LABS: Creatine Phosphokinase 75 U/L (39-308); Ferritin 594.2 ng/mL (26-388); Transferrin 171 mg/dL (200-360)
--- NOTE | 2021-08-13 00:55 | P.HP ---
Certification for Inpatient Patient admitted to: Inpatient With expected LOS: >2 Midnights Patient will require the following post-hospital care: None Practitioner: I am a practitioner with admitting privileges, knowledge of patient current condition, hospital course, and medical plan of care. Services: Services provided to patient in accordance with Admission requirements found in Title 42 Section 412.3 of the Code of Federal Regulations <Drew Rubio - Last Filed: 08/13/21 00:49> Patient History Date of Service: 08/13/21 Reason for admission: acute on chronic renal failure, hyperkalemia History of Present Illness: Mr. Garcia is a 61 yo M with DM, HTN,m HLD, CVA, glaucoma who was sent in by PCP for abnormal blood work and told he was in kidney failure. He reports shortness of breath and general malaise. He says 6 months ago, he was admitted to [facility] for hyperglycemia and he was told that his GFR was 35 at that time. About 2 months ago, he fell and fractured his hip and had a hip repair. Since that time he reports weight loss of 30 pounds. He says he was recently taken off Lantus and switched to metformin. On 07/10, he says he ran out of his medications and just had them refilled 3 days ago. He says he drinks 16-32 oz of water daily, but mainly drinks sweet tea. He still makes urine, and says he u rinates frequently. He reports occasional diarrhea due to the metformin. Denies NSAID use, antibiotic use, bleeding, vomiting. He takes losartan for hypertension. Hemoglobin 9.9 MCV 72.7 Na 133 K 6 BUN 58 Cr 3.65 GFR 21 Glu 421 BNP 3019 A1c 8.7% He received calcium gluconate, insulin, and albuterol in the ED. - Past Medical/Surgical History Diabetic: Yes -: DM -: CVA -: glaucoma -: HLD -: HTN -: CKD -: hip repair - Family History Mother -: Diabetes Brother -: Diabetes Sister -: Diabetes Father -: Lung disease - Social History Smoking Status: Former smoker Alcohol use: No CD- Drugs: No Caffeine use: No Place of Residence: Home <Drew Rubio - Last Filed: 08/13/21 00:49> Date of Service: 08/13/21 <Jerome Kang - Last Filed: 08/18/21 05:17> Allergies No Known Allergies Allergy (Unverified 08/13/21 01:29) Home Medications: Atorvastatin Calcium [Lipitor] 40 mg PO BEDTIME 08/13/21 Nifedipine [Procardia Xl] 30 mg PO BEDTIME #30 tab.er.24 08/15/21 Nifedipine [Procardia Xl] 60 mg PO DAILY #30 tab.er.24 08/15/21 Sodium Bicarbonate 650 mg PO Q12H #60 tablet 08/15/21 carvediloL [Coreg*] 12.5 mg PO BID #60 tab 08/15/21 Review of Systems 10-point ROS is otherwise unremarkable General: Malaise Respiratory: Shortness of Breath <Drew Rubio - Last Filed: 08/13/21 00:49> Physical Examination - Physical Exam General: Alert, In no apparent distress, Cachectic HEENT: Atraumatic, PERRLA, Mucous membr. moist/pink, EOMI, Sclerae nonicteric Neck: Supple, 2+ carotid pulse no bruit, No LAD, Without JVD or thyroid abnormality Respiratory: Clear to auscultation bilaterally, Normal air movement Cardiovascular: No edema, Regular rate/rhythm, Normal S1 S2, Systolic murmur Gastrointestinal: Normal bowel sounds, No tenderness Musculoskeletal: No tenderness Integumentary: No rashes Neurological: Normal speech, Normal strength at 5/5 x4 extr, Normal tone, Normal affect Lymphatics: No axilla or inguinal lymphadenopathy - Studies Laboratory Data (last 24 hrs) 08/12/21 22:42: Uric Acid Cancelled 08/12/21 17:58: WBC 9.40, Hgb 9.9 L, Hct 31.2 L, Plt Count 218 08/12/21 17:58: Sodium 133 L, Potassium 6.0 H*, BUN 58 H, Creatinine 3.65 H, Glucose 421 H*, Uric Acid 7.0, Magnesium 2.0, Total Bilirubin 0.4, AST 8 L, ALT 12, Alkaline Phosphatase 99 08/12/21 17:13: PT 11.5, INR 1.00 <Drew Rubio - Last Filed: 08/13/21 00:49> Assessment and Plan - Problems (Diagnosis) (1) CKD (chronic kidney disease) Status: Chronic Qualifiers: Chronic kidney disease stage: stage 4 (severe) Qualified Code(s): N18.4 - Chronic kidney disease, stage 4 (severe) (2) Hyperkalemia Status: Acute (3) Anemia of chronic disease Status: Chronic (4) T2DM (type 2 diabetes mellitus) Status: Chronic Qualifiers: Diabetes mellitus buttermaker insulin use: without skilled nursing use Diabetes mellitus complication status: with kidney complications Diabetes mellitus complication detail: with chronic kidney disease Chronic kidney disease stage: stage 4 (severe) Qualified Code(s): E11.22 - Type 2 diabetes mellitus with diabetic chronic kidney disease; N18.4 - Chronic kidney disease, stage 4 (severe) (5) HLD (hyperlipidemia) Status: Chronic Qualifiers: Hyperlipidemia type: unspecified Qualified Code(s): E78.5 - Hyperlipidemia, unspecified (6) HTN (hypertension) Status: Chronic Qualifiers: Hypertension type: primary hypertension Qualified Code(s): I10 - Essential (primary) hypertension - Plan nephrology consulted continue potassium lowering therapies, on telemetry, repeat BMP sliding scale insulin and accuchecks vitamin D, phosphorus, PTH pending gentle IV fluid hydration, monitor urine output dietitian consulted hydralazine PRN for BP spikes reconcile and continue home medications DVT ppx Discharge Plan: Home Plan to discharge in: 48 Hours - Advance Directives Does patient have a Living Will: No Does patient have a Durable POA for Healthcare: No - Code Status/Comfort Care Code Status Assessed: Yes (full code ) Critical Care: No Time Spent Managing Pts Care (In Minutes): 70 <Drew Rubio - Last Filed: 08/13/21 00:49> - Problems (Diagnosis) (1) Acute kidney injury superimposed on CKD Status: Acute (2) HLD (hyperlipidemia) Status: Chronic Qualifiers: Hyperlipidemia type: unspecified Qualified Code(s): E78.5 - Hyperlipidemia, unspecified (3) HTN (hypertension) Status: Chronic Qualifiers: Hypertension type: primary hypertension Qualified Code(s): I10 - Essential (primary) hypertension (4) T2DM (type 2 diabetes mellitus) Status: Chronic Qualifiers: Diabetes mellitus skilled nursing insulin use: without buttermaker use Diabetes mellitus complication status: with kidney complications Diabetes mellitus complication detail: with chronic kidney disease Chronic kidney disease stage: stage 4 (severe) Qualified Code(s): E11.22 - Type 2 diabetes mellitus with diabetic chronic kidney disease; N18.4 - Chronic kidney disease, stage 4 (severe) <Jerome Kang - Last Filed: 08/18/21 05:17> Date of Service: 08/13/21 Subjective: Agree with the HPI as mentioned above Physical Examination: Vitals: Afebrile vital signs are stable Physical exam: Cardiovascular: Within normal limits. Lungs: Within normal limits Abdomen: Within normal limits Neuro: Awake, alert, oriented to person place and time Assessment: 1. Acute/chronic kidney failure Plan: 1. Continue with current plan of care as mentioned above <Jerome Kang - Last Filed: 08/18/21 05:17>
--- NOTE | 2021-08-13 01:20 | RAD REPORT ---
EXAM DESCRIPTION: US - Renal Ultrasound-Complete - 08/12/2021 11:27 pm CLINICAL HISTORY: ELLEN Flank pain COMPARISON: No comparisons FINDINGS: Both kidneys are normal in size, shape and echotexture. The right kidney measures 10.9 x 6.4 x 6.1 cm. No hydronephrosis, focal mass or perinephric fluid. The left kidney measures 10.4 x 7.1 x 4.9 cm. No hydronephrosis, focal mass or perinephric fluid. Peterson ign 18 mm parapelvic cyst. The urinary bladder is incompletely distended without gross abnormality seen. IMPRESSION: No significant pathologic finding.
[2021-08-13] MEDS ORDERED: ONDANSETRON 4 MG/2 ML VIAL IV PRN (01:30)
[2021-08-13] MEDS: NA CHLORIDE 0.9% 1,000 ML IV SCH ×2 (01:30→20:40)
[2021-08-13] MEDS ORDERED: GLUCAGON 1 MG/VIAL IM PRN (01:30)
[2021-08-13] MEDS ORDERED: D50W 25 GM/50 ML SYRINGE IV PRN (01:30)
[2021-08-13] MEDS ORDERED: HYDRALAZINE HCL 20 MG/ML VIAL IV PRN (01:30)
[2021-08-13] MEDS: HEPARIN 5000 UNIT/ML 1 ML VIAL SQ SCH ×3 (01:30→17:00)
[2021-08-13] MEDS ORDERED: SOD POLYSTYREN SUL 15 GM/60 ML UCUP PO ONE (01:30)
[2021-08-13] MEDS ORDERED: ACETAMINOPHEN 500 MG TAB PO PRN (01:30)
[2021-08-13] MEDS ORDERED: HEPARIN 5000 UNIT/ML 1 ML VIAL ONE ×2 (02:51→09:27)
[2021-08-13] MEDS ORDERED: SOD POLYSTYREN SUL 15 GM/60 ML UCUP ONE (02:51)
[2021-08-13] MEDS ORDERED: NA CHLORIDE 0.9% 1,000 ML ONE (02:52)
[2021-08-13 03:17] VITALS: BMI 21.4
[2021-08-13] MEDS ORDERED: HYDRALAZINE HCL 20 MG/ML VIAL ONE (04:29)
[2021-08-13 05:02] LABS: UR PROTEIN 107.7 mg/dL (<11.9); Urine Protein/Creatinine Ratio 1.86 ratio (<0.15)
[2021-08-13 06:03] LABS: Phosphorus 3.9 mg/dL (2.5-4.9); Potassium 5.3 mmol/L (3.5-5.1)
[2021-08-13] MEDS: INSULIN -REGULAR HUMAN 50 UNIT/0.5 ML ML SQ SCH ×4 (07:30→20:39)
[2021-08-13] MEDS ORDERED: INFLUENZA VACCINE (for 6+ mo) 0.5 ML DOSE IMVAC ONE (08:00)
--- NOTE | 2021-08-13 08:24 | P.CNS ---
Date of Consult: 08/13/21 Reason for Consult: ELLEN vs CKD, Hyperkalemia Requesting Physician: Drew Rubio Chief Complaint: acute on chronic renal failure, hyperkalemia History of Present Illness: 61 y o male pt with hx of HTN, DM type 2, HLD, CKD who was evaluated in the ED for episode of abnormal labs. his renal function had been noted to be poor with prior episode of admission for elevated cr in the [facility]. his labs revealed elevated potassium of 6.0 and hi cr was 3.5. he denied any issues with n/v, diarrhea, sob, leg swelling but noted that his blood glucose control has been poor. he was asked to be evaluated by nephrology for his abnormal labs. Allergies No Known Allergies Allergy (Unverified 08/13/21 01:29) Home Medications: Atorvastatin Calcium [Lipitor] 40 mg PO BEDTIME 08/13/21 Carvedilol [Coreg] 25 mg PO BID 08/13/21 Losartan Potassium 25 mg PO 08/13/21 Metformin ER [Glucophage ER] 500 mg PO DAILY 08/13/21 NIFEdipine [Nifedipine ER] 90 mg PO 08/13/21 - Past Medical/Surgical History Diabetic: Yes -: DM -: CVA -: glaucoma -: HLD -: HTN -: CKD -: hip repair -: eye - Family History Mother Medical History: Heart disease, Diabetes Brother Medical History: Diabetes Sister Medical History: Diabetes Father Medical History: Lung disease - Social History Alcohol use: No CD- Drugs: No Caffeine use: No Place of Residence: Home Review of Systems General: Weakness, Malaise Eyes: Unremarkable ENT: Unremarkable Respiratory: Unremarkable Cardiovascular: Unremarkable Gastrointestinal: Unremarkable Genitourinary: Unremarkable Musculoskeletal: Unremarkable Integumentary: Unremarkable Neurological: Unremarkable Physical Examination Temp Pulse Resp BP Pulse Ox 97.9 F 72 18 218/96 H 100 08/13/21 04:00 08/13/21 04:00 08/13/21 04:00 08/13/21 04:00 08/13/21 04:00 General: Alert, Oriented x3 HEENT: Atraumatic, Normocephalic Respiratory: Clear to auscultation bilaterally Cardiovascular: Normal pulses, Regular rate/rhythm Gastrointestinal: Soft and benign Neurological: Normal speech Laboratory Data (last 24 hrs) 08/12/21 22:42: Uric Acid Cancelled 08/12/21 17:58: WBC 9.40, Hgb 9.9 L, Hct 31.2 L, Plt Count 218 08/12/21 17:58: Sodium 133 L, Potassium 6.0 H*, BUN 58 H, Creatinine 3.65 H, Glucose 421 H*, Uric Acid 7.0, Magnesium 2.0, Total Bilirubin 0.4, AST 8 L, ALT 12, Alkaline Phosphatase 99 08/12/21 17:13: PT 11.5, INR 1.00 Conclusions/Impression: LELEN vs CKD progression: His cr is elevated at 3.5. he did have IV fluid for rehydration. we will obtain renal US, urine p/c and phosphorus levels. we will dose meds for eGFR and avoid nephrotoxins. we will hold all metformin doses at this time. Hyperkalemia; High potassium of 6.0 noted. this is better at 5.3. we think her losartan dose cause elevated potassium and the kidney function is also a confounder. we will use low potassium diet for now. Diabetes type 2: we will start SSI for better glucose control. Hypertension: we will monitor vitals per unit protocol. we will start nifedipine and carvedilol for management. Goal BP is <130/80mmhg.
[2021-08-13] MEDS ORDERED: INSULIN -REGULAR HUMAN 50 UNIT/0.5 ML ML ONE ×2 (09:44→12:17)
[2021-08-13] MEDS: carvediloL 12.5 MG TAB PO SCH ×2 (09:57→20:40)
[2021-08-13] MEDS: NIFEDIPINE XL 30 MG TABLET PO SCH (09:58)
--- NOTE | 2021-08-13 13:03 | EKG ---
Test Date: 2021-08-12 Test Time: 19:46:59 Clinical Trial Associate: MEASUREMENT RESULTS: Intervals: Rate: 57 FL: 124 QRSD: 96 QT: 408 QTc: 397 [place]: P: 79 FL: 124 QRS: 38 T: 76 INTERPRETIVE STATEMENTS: Sinus bradycardia Moderate voltage criteria for LVH, may be normal variant ST elevation, consider early repolarization, pericarditis, or injury Abnormal ECG No previous ECG available for comparison Electronically Signed On 08-13-21 13:02:46 TECHNICAL OPERATIONS VICE PRESIDENT by Diego Sherman
--- NOTE | 2021-08-13 22:10 | P.PN ---
Subjective Date of Service: 08/13/21 Patient's clinical status is improving. Continue with hydration. Repeat renal function. Appreciate nephrology consultation. Review of Systems 10-point ROS is otherwise unremarkable Physical Examination - Vital Signs Temperature: 97.2 F Blood Pressure: 143/76 Pulse: 60 Respirations: 18 Pulse Ox (%): 100 - Physical Exam General: Alert, In no apparent distress, Oriented x3 Respiratory: Clear to auscultation bilaterally, Normal air movement Cardiovascular: Regular rate/rhythm, Normal S1 S2 Gastrointestinal: Normal bowel sounds, No tenderness Musculoskeletal: No tenderness Integumentary: No rashes Neurological: Normal speech, Normal tone, Normal affect Lymphatics: No axilla or inguinal lymphadenopathy - Studies Laboratory Data (last 24 hrs) 08/12/21 22:42: Uric Acid Cancelled 08/12/21 17:58: Sodium 133 L, Potassium 6.0 H*, BUN 58 H, Creatinine 3.65 H, Glucose 421 H*, Uric Acid 7.0, Magnesium 2.0, Total Bilirubin 0.4, AST 8 L, ALT 12, Alkaline Phosphatase 99 Medications List Reviewed: Yes Assessment & Plan - Problems (Diagnosis) (1) Acute kidney injury superimposed on CKD Current Visit: Yes Status: Acute (2) HLD (hyperlipidemia) Current Visit: Yes Status: Chronic Qualifiers: Hyperlipidemia type: unspecified Qualified Code(s): E78.5 - Hyperlipidemia, unspecified (3) HTN (hypertension) Current Visit: Yes Status: Chronic Qualifiers: Hypertension type: primary hypertension Qualified Code(s): I10 - Essential (primary) hypertension (4) T2DM (type 2 diabetes mellitus) Current Visit: Yes Status: Chronic Qualifiers: Diabetes mellitus halfway insulin use: without halfway use Diabetes mellitus complication status: with kidney complications Diabetes mellitus complication detail: with chronic kidney disease Chronic kidney disease stage: stage 4 (severe) Qualified Code(s): E11.22 - Type 2 diabetes mellitus with diabetic chronic kidney disease; N18.4 - Chronic kidney disease, stage 4 (severe) - Plan Plan: 1. Continue with IV hydration 2. Monitor renal function 3. Renal ultrasound 4. Repeat labs 5. GI and DVT prophylaxis Discharge Plan: Home Plan to discharge in: Greater than 2 days - Advance Directives Does patient have a Living Will: No Does patient have a Durable POA for Healthcare: No - Code Status/Comfort Care Code Status Assessed: Yes Code Status: Full Code Critical Care: No Time Spent Managing PTS Care (In Minutes): 45
[2021-08-14] MEDS: HEPARIN 5000 UNIT/ML 1 ML VIAL SQ SCH ×3 (01:45→17:17)
[2021-08-14] MEDS: HYDRALAZINE HCL 20 MG/ML VIAL IV PRN (03:54)
[2021-08-14 05:12] LABS: Absolute Lymphocytes (CBC) 1.5 K/uL (0.7-4.9); Hematocrit 30.8 % (39.6-49.0); Lymphocytes % 18.9 % (15.3-44.8); MPV 9.2 fL (7.6-11.3); RBC Red Blood Cell Count 4.28 M/uL (4.33-5.43)
[2021-08-14 05:47] LABS: Albumin 2.5 g/dL (3.4-5.0); Bilirubin Total 0.3 mg/dL (0.2-1.0); Magnesium 1.9 mg/dL (1.8-2.4); Potassium 4.1 mmol/L (3.5-5.1)
[2021-08-14] MEDS: carvediloL 12.5 MG TAB PO SCH ×2 (08:27→21:27)
[2021-08-14] MEDS: NIFEDIPINE XL 30 MG TABLET PO SCH (08:27)
[2021-08-14] MEDS: INSULIN -REGULAR HUMAN 50 UNIT/0.5 ML ML SQ SCH ×4 (08:28→21:28)
--- NOTE | 2021-08-14 09:15 | P.PN ---
Subjective Date of Service: 08/14/21 Chief Complaint: acute on chronic renal failure, hyperkalemia Subjective: No new changes, No C/O voiced Physical Examination - Vital Signs Temperature: 98.5 F Blood Pressure: 192/85 Pulse: 99 Respirations: 18 Pulse Ox (%): 97 - Physical Exam General: Alert, Oriented x3 HEENT: Atraumatic, Normocephalic Neck: Supple Respiratory: Normal air movement Cardiovascular: Regular rate/rhythm, Normal S1 S2 Gastrointestinal: Soft and benign Neurological: Normal speech, Cranial nerves 3-12 intact - Studies Medications List Reviewed: Yes Assessment And Plan - Plan ELLEN vs CKD progression: His cr is improved today. Values 2.65. We will continue hydration via oral route. Continue to avoid hypotension. We will continue to monitor renal function while admitted. We will continue to dose meds for symmetrical modification and avoid exposure to nephrotoxins. We will hold losartan dose at this time. Hyperkalemia; His serum potassium is better today 4.1. We will continue to hold losartan doses for now. Diabetes type 2: we will continue SSI for better glucose control. Hypertension: His blood pressure is still elevated. We will dose his medication for better blood pressure control. We will increase nifedipine dose to 60 mg daily and continue carvedilol 12.5 mg p.o. twice daily we will follow vitals closely.
[2021-08-14] MEDS: SODIUM BICARB 325 MG TAB PO SCH ×2 (14:50→21:26)
[2021-08-14] MEDS: NA CHLORIDE 0.9% 1,000 ML IV SCH (17:17)
[2021-08-15] MEDS: HEPARIN 5000 UNIT/ML 1 ML VIAL SQ SCH ×2 (00:38→08:41)
[2021-08-15] MEDS: HYDRALAZINE HCL 20 MG/ML VIAL IV PRN ×2 (00:38→04:15)
[2021-08-15 05:47] LABS: Absolute Lymphocytes (CBC) 1.1 K/uL (0.7-4.9); Hematocrit 28.7 % (39.6-49.0); Lymphocytes % 12.3 % (15.3-44.8); MPV 9.1 fL (7.6-11.3)
[2021-08-15 06:06] LABS: Potassium 4.1 mmol/L (3.5-5.1)
[2021-08-15] MEDS: INSULIN -REGULAR HUMAN 50 UNIT/0.5 ML ML SQ SCH (08:41)
[2021-08-15] MEDS: carvediloL 12.5 MG TAB PO SCH (08:41)
[2021-08-15] MEDS: SODIUM BICARB 325 MG TAB PO SCH (08:41)
[2021-08-15 08:49] VITALS: BP 163/77; TEMP 98.2
[2021-08-15 08:50] VITALS: O2SAT 100
--- NOTE | 2021-08-15 08:58 | P.PN ---
Subjective Date of Service: 08/15/21 Chief Complaint: acute on chronic renal failure, hyperkalemia Subjective: No new changes Physical Examination - Vital Signs Temperature: 98.2 F Blood Pressure: 163/77 Pulse: 101 Respirations: 16 Pulse Ox (%): 99 - Physical Exam General: Alert, Oriented x3 HEENT: Atraumatic, Normocephalic Neck: Supple Respiratory: Normal air movement Cardiovascular: Regular rate/rhythm, Normal S1 S2 Gastrointestinal: Soft and benign Musculoskeletal: No swelling Neurological: Normal strength at 5/5 x4 extr - Studies Medications List Reviewed: Yes Assessment And Plan - Plan ELLEN vs CKD progression: His cr is improved. We will continue hydration via oral route. Continue to avoid hypotension. We will continue to monitor renal function while admitted. We will continue to dose meds for symmetrical modification and avoid exposure to nephrotoxins. We will hold losartan dose at this time. Hyperkalemia; His serum potassium is better today 4.1. We will continue to hold losartan doses for now. Diabetes type 2: we will continue SSI for better glucose control. Hypertension: His blood pressure is slightly. We will dose his medication for better blood pressure control. We will continue nifedipine dose at 60 mg daily and continue carvedilol 12.5 mg p.o. twice daily we will follow vitals closely.
[2021-08-15] MEDS ORDERED: NIFEDIPINE XL 60 MG TABLET PO SCH (09:00)
[2021-08-15] MEDS ORDERED: HYDRALAZINE HCL 25 MG TABLET PO ONE ×2 (09:50)
[2021-08-15] MEDS ORDERED: ISOSORBIDE DINIT 20 MG TAB PO ONE (09:52)
[2021-08-17 22:39] LABS: Vitamin D 1,25-Dihydroxy Total 25 pg/mL (18-72); Vitamin D,1,25-OH2, D2 <8 pg/mL
--- NOTE | 2021-08-18 05:19 | P.PN ---
Date of Service: 08/14/21 Subjective Patient clinically doing well with no new complaints. Renal function has improved. Review of Systems 10-point ROS is otherwise unremarkable Physical Examination - Vital Signs Reviewed - Physical Exam General: Alert, In no apparent distress, Oriented x3 Respiratory: Clear to auscultation bilaterally, Normal air movement Cardiovascular: Regular rate/rhythm, Normal S1 S2 Gastrointestinal: Normal bowel sounds, No tenderness Musculoskeletal: No tenderness Integumentary: No rashes Neurological: Normal speech, Normal tone, Normal affect Lymphatics: No axilla or inguinal lymphadenopathy Assessment & Plan - Problems (Diagnosis) (1) Acute kidney injury superimposed on CKD Current Visit: Yes Status: Acute (2) HLD (hyperlipidemia) Current Visit: Yes Status: Chronic Qualifiers: Hyperlipidemia type: unspecified Qualified Code(s): E78.5 - Hyperlipidemia, unspecified (3) HTN (hypertension) Current Visit: Yes Status: Chronic Qualifiers: Hypertension type: primary hypertension Qualified Code(s): I10 - Essential (primary) hypertension (4) T2DM (type 2 diabetes mellitus) Current Visit: Yes Status: Chronic Qualifiers: Diabetes mellitus senior care insulin use: without exterminator use Diabetes mellitus complication status: with kidney complications Diabetes mellitus complication detail: with chronic kidney disease Chronic kidney disease stage: stage 4 (severe) Qualified Code(s): E11.22 - Type 2 diabetes mellitus with diabetic chronic kidney disease; N18.4 - Chronic kidney disease, stage 4 (severe) - Plan continue with plan of care as mentioned below: 1. Continue with IV hydration 2. Monitor renal function 3. Renal ultrasound 4. Repeat labs 5. GI and DVT prophylaxis
--- NOTE | 2021-08-18 05:20 | P.DS ---
Discharge Date: 08/15/21 Disposition: ROUTINE DISCHARGE Discharge Condition: GOOD Reason for Admission: acute on chronic renal failure, hyperkalemia - Problems (1) Acute kidney injury superimposed on CKD Status: Acute (2) HLD (hyperlipidemia) Status: Chronic Qualifiers: Hyperlipidemia type: unspecified Qualified Code(s): E78.5 - Hyperlipidemia, unspecified (3) HTN (hypertension) Status: Chronic Qualifiers: Hypertension type: primary hypertension Qualified Code(s): I10 - Essential (primary) hypertension (4) T2DM (type 2 diabetes mellitus) Status: Chronic Qualifiers: Diabetes mellitus long term care social worker insulin use: without fpc use Diabetes mellitus complication status: with kidney complications Diabetes mellitus complication detail: with chronic kidney disease Chronic kidney disease stage: stage 4 (severe) Qualified Code(s): E11.22 - Type 2 diabetes mellitus with diabetic chronic kidney disease; N18.4 - Chronic kidney disease, stage 4 (severe) Brief History of Present Illness: Mr. Garcia is a 61 yo M with DM, HTN,m HLD, CVA, glaucoma who was sent in by PCP for abnormal blood work and told he was in kidney failure. He reports shortness of breath and general malaise. He says 6 months ago, he was admitted to [facility] for hyperglycemia and he was told that his GFR was 35 at that time. About 2 months ago, he fell and fractured his hip and had a hip repair. Since that time he reports weight loss of 30 pounds. He says he was recently taken off Lantus and switched to metformin. On 07/10, he says he ran out of his medications and just had them refilled 3 days ago. He says he drinks 16-32 oz of water daily, but mainly drinks sweet tea. He still makes urine, and says he urinates frequently. He reports occasional diarrhea due to the metformin. Denies NSAID use, antibiotic use, bleeding, vomiting. He takes losartan for hypertension. Hospital Course: Patient renal function has improved. Patient is clinically doing much better. At this time, patient is stable for discharge with outpatient follow-up. Vital Signs/Physical Exam: Temp Pulse Resp BP Pulse Ox 98.2 F 101 H 16 163/77 H 99 08/15/21 08:58 08/15/21 08:58 08/15/21 08:58 08/15/21 08:58 08/15/21 08:58 General: Alert, In no apparent distress, Oriented x3 Laboratory Data at Discharge: WBC 8.80 K/uL (4.3-10.9) D 08/15/21 05:27 Hgb 9.1 g/dL (13.6-17.9) L 08/15/21 05:27 Hct 28.7 % (39.6-49.0) L 08/15/21 05:27 Plt Count 211 K/uL (152-406) 08/15/21 05:27 PT 11.5 SECONDS (9.5-12.5) 08/12/21 17:13 INR 1.00 08/12/21 17:13 Sodium 139 mmol/L (136-145) 08/15/21 05:27 Potassium 4.1 mmol/L (3.5-5.1) 08/15/21 05:27 BUN 47 mg/dL (7-18) H 08/15/21 05:27 Creatinine 2.66 mg/dL (0.55-1.3) H 08/15/21 05:27 Glucose 219 mg/dL (74-106) H 08/15/21 05:27 Uric Acid Cancelled 08/12/21 22:42 Phosphorus 3.9 mg/dL (2.5-4.9) 08/13/21 02:52 Magnesium 2.0 mg/dL (1.8-2.4) 08/15/21 05:27 Total Bilirubin 0.3 mg/dL (0.2-1.0) 08/14/21 05:04 AST 10 U/L (15-37) L 08/14/21 05:04 ALT 12 U/L (12-78) 08/14/21 05:04 Alkaline Phosphatase 90 U/L (45-117) 08/14/21 05:04 Triglycerides 58 mg/dL (<150) 08/14/21 05:04 Cholesterol 168 mg/dL (<200) 08/14/21 05:04 HDL Cholesterol 67 mg/dL (40-60) H 08/14/21 05:04 Cholesterol/HDL Ratio 2.51 08/14/21 05:04 Home Medications: Atorvastatin Calcium [Lipitor] 40 mg PO BEDTIME 08/13/21 Nifedipine [Procardia Xl] 30 mg PO BEDTIME #30 tab.er.24 08/15/21 Nifedipine [Procardia Xl] 60 mg PO DAILY #30 tab.er.24 08/15/21 Sodium Bicarbonate 650 mg PO Q12H #60 tablet 08/15/21 carvediloL [Coreg*] 12.5 mg PO BID #60 tab 08/15/21 New Medications: carvediloL [Coreg*] 12.5 mg PO BID #60 tab Nifedipine [Procardia Xl] 30 mg PO BEDTIME #30 tab.er.24 Nifedipine [Procardia Xl] 60 mg PO DAILY #30 tab.er.24 Sodium Bicarbonate 650 mg PO Q12H #60 tablet Physician Discharge Instructions: PROBLEM: (acute kidney injury) GOAL: Clear understanding of disease process INSTRUCTIONS: Diet: Renal Activity: Fall precautions IMMUNIZATION Influenza Vaccine Indicated: Yes Influenza Vaccine Given: No Date Given: Pneumonia Vaccine Indicated: No Pneumonia Vaccine Given: Date Given: -DC IV and DC home -Follow-up with PCP in 1 to 2 weeks -Follow-up with Nephrology in 1 to 2 weeks -Please call Dr. Kang at [phone] if any questions regarding hospital stay -Please call nursing station at [phone] if any nursing or medication questions -Return to the emergency room if symptoms worsen Diet: Renal Activity: Fall precautions Followup: Lynn Mccann [Primary Care Provider] - Time spent managing pt's care (in minutes): 35
== END 2021-08-15 11:05 | disposition home or self-care (01) | DRG 683 ==
LOC: ER 16:02 → ERHOLD 08-13 00:49 → 2ND 08-13 18:28
PROVIDERS: ADMIT Hospitalist; ATTEND Hospitalist
DX: N17.9 Acute kidney failure, unspecified (principal); R64 Cachexia; E87.5 Hyperkalemia; I12.9 Hypertensive chronic kidney disease with stage 1 through stage 4 chronic kidney disease, or unspecified chronic kidney disease; N18.4 Chronic kidney disease, stage 4 (severe); E11.22 Type 2 diabetes mellitus with diabetic chronic kidney disease; D63.8 Anemia in other chronic diseases classified elsewhere; E11.65 Type 2 diabetes mellitus with hyperglycemia; E78.5 Hyperlipidemia, unspecified; Z79.4 Long term (current) use of insulin; Z79.899 Other long term (current) drug therapy; Z86.73 Personal history of transient ischemic attack (TIA), and cerebral infarction without residual deficits; Z87.891 Personal history of nicotine dependence; Z68.21 Body mass index [BMI] 21.0-21.9, adult; Z79.84 Long term (current) use of oral hypoglycemic drugs; Z20.822 Contact with and (suspected) exposure to COVID-19
CPT/HCPCS: 36415; 71045; 76770; 80048; 80053; 80061; 80076; 81003; 81015; 82550; 82570; 82607; 82652; 82728; 82747; 82947; 83036; 83540; 83735; 83880; 83970; 84100; 84156; 84439; 84443; 84466; 84484; 84550; 85025; 85610; 93005; 94760; 96365; 96366; 96375; 99285; J0360; J0610; J1644; J7030; U0003